=== PATIENT | female | born 1975 | race Caucasian/White ===

== ENCOUNTER 2024-09-26 09:58 | Inpatient (IN) | payer OTHER, SELFPAY ==
[2024-09-26] VITALS (12 sets, daily range): BP systolic 114–149; BP diastolic 61–80; PULSE 78–129; RESP 13–115; TEMP 36.6–37.2; O2SAT 95–99; BMI 22.5
--- NOTE | ~2024-09-26 | CT_ITS ---
EXAMINATION: CT CHEST WITHOUT IV CONTRAST INDICATION: abnormal CXR, cough, fevers COMPARISON: There are no prior studies available for comparison. TECHNIQUE: Helical CT scan of the chest was performed without intravenous contrast. Coronal and sagittal reformatted images were generated and reviewed. This CT exam was performed with one or more of the following dose reduction techniques: automated exposure control, adjustment of the mA and/or kV according to patient size, use of iterative reconstruction technique. DLP: 201 mGy-cm CHEST: THYROID: The thyroid is unremarkable. LUNGS: In the left lower lobe, there is a pleural-based area of consolidation with surrounding area of mild groundglass opacity and a further surrounding halo of consolidation. This area measures approximately 5.1 x 6.0 x 3.7 cm in size. The remainder of the lungs are clear. There is elevation of the left hemidiaphragm. MEDIASTINUM: There is a 9 mm superior mediastinal lymph node. GEORGE: Evaluation of the hilar regions is limited by lack of intravenous contrast material. CARDIOVASCULATURE: The heart is normal in size. There is no pericardial effusion. The thoracic aorta is normal in caliber. DEGREE OF CORONARY CALCIFICATION: none PLEURA: There is no pleural effusion. No pneumothorax. MAIN AIRWAYS: The mainstem bronchi and proximal branches are patent. AXILLA: There is no axillary lymphadenopathy. BONES AND SOFT TISSUES: There are rounded masses in both breasts measuring 1.5 x 1.1 cm on the right and 1.5 x 1.3 cm on the left. The bones are intact. UPPER ABDOMEN: The visualized portions of the liver, spleen, and adrenals have an unremarkable unenhanced appearance. CT/CT chest wo IV con IMPRESSION: 1. Pleural-based consolidation with surrounding groundglass and an additional halo of consolidation in the left lower lobe measuring 5.1 x 6.0 x 3.7 cm in aggregate. The appearance is not typical for bacterial pneumonia. Differential diagnostic considerations include cryptogenic organizing pneumonia, fungal or other infectious etiology, granulomatosis with polyangiitis sarcoidosis, and neoplasm. Clinical correlation is recommended. Tissue sampling may be necessary. 2. Bilateral breast nodules as described for which mammography and ultrasound are recommended. Electronically signed by: Justin Sylvester MD 09/26/2024 12:43 PM EDT RP
--- NOTE | 2024-09-26 10:38 | ED.URI ---
HPI - URI/Sore Throat General Chief Complaint: Upper Respiratory Symptoms Stated Complaint: abnormal chest xray Time Seen by Provider: 09/26/24 14:35 Source: patient Mode of arrival: ambulatory Limitations: no limitations History of Present Illness ED Provider: Dr. Todd Villa HPI Narrative: 49-year-old female with a history of anxiety, migraines, environmental allergies who presents emergency department for evaluation of sore throat, cough and fatigue x3 days. The patient has had a sore throat for proximally 3-4 days with laryngitis/loss of voice. She states that the throat pain is severe and she is unable to swallow food but he is able to drink liquids. Patient complains of a nonstop persistent, nonproductive cough which became productive today. She has not looked at the sputum. She states that she is having severe fatigue. She denied fever, chills, chest pain, shortness of breath, dyspnea on exertion, myalgias arthralgias. Patient went to an urgent care clinic and had an unusual chest x-ray therefore she was referred to the emergency department for evaluation. The patient states that she is not a smoker in his never smoked in the past. The patient states she does have nodular breasts and had a recent mammogram with ultrasound done through [facility] [address]. Vital signs revealed elevated heart rate, throat exam did reveal posterior erythema but no other significant findings, exam otherwise unremarkable except for very persistent, frequent, dry sounding cough. Related Data Allergies Allergy/AdvReac Type Severity Reaction Status Date / Time No Known Allergies Allergy Verified 09/26/24 10:41 Review of Systems Review of Systems: Yes all other systems are reviewed and are negative [facility] Past Medical History [facility] Narrative: Social history: The patient denies tobacco use in his never smoked cigarettes in the past. She states she drinks alcohol once a week and drinks 1-2 glasses of wine. She denies drug use. Social History Social History Smoked in Last 30 Days: No Use of substances other than those prescribed or required for medical reasons: No Advance Directives: No Advance Directives Information Provided: Yes Do you have a plan to hurt others: No Plan Patient : No Physical Exam Vital Signs: Vital Signs: Last Vital Signs Temp 98.5 F 09/26/24 16:12 Pulse 110 H 09/26/24 16:12 Resp 13 09/26/24 16:12 BP 140/61 H 09/26/24 16:12 Pulse Ox 99 09/26/24 16:15 O2 Del Method Room Air 09/26/24 16:15 BMI result Body Mass Index 22.5 Vital signs revealed an elevated heart rate of 129 otherwise unremarkable. Exam: General: Awake, alert, in no distress, , while I was in the room the patient had a very frequent dry sounding cough Head: Normocephalic, atraumatic EENT: PERRL, Lids normal, sclera normal, conjunctiva normal, nose normal , ears normal, throat : Posterior erythema with no exudates, uvula midline Neck: Supple, no adenopathy Lung: breath sounds symmetric, no wheezing, rales or rhonchi Chest: symmetric movement, nontender Heart: regular rate and rhythm, normal S1, S2 no murmurs or rubs Abdomen: soft, non-tender, nondistended, normal bowel sounds Back: no vertebral tenderness, no CVAT Extremities: no deformities, moves all extremities symmetrically Neuro: Awake, alert, oriented, normal speech, cranial nerves intact, moves all extremities symmetrically Psych: Pleasant, cooperative Course Course Course Narrative: 49 yo female with no PMH here with c/o cough for a few days, EKG - she has been sick over the weekend. No recent travel, sick contacts. She had neg strep, neg COVID at urgent care - sent by provider for ?spot on L lung. She has no chest pain, has sore throat. Stopped taking OTC medications but it is not working. At this time will obtain viral panel, strep, CT chest. this is a RAPID medical screening exam the rest of the history and physical exam is to be done by the main provider. DEMAR 09/26/24 1040am Medications Administered Generic Name Dose Route Start Last Admin Trade Name Freq PRN Reason Stop Dose Admin Azithromycin 500 mg/ Sodium 250 mls @ 125 mls/hr 09/26/24 15:14 09/26/24 16:10 Chloride IV 09/26/24 17:13 125 mls/hr ONCE ONE Administration Discontinued Medications Generic Name Dose Route Start Last Admin Trade Name Freq PRN Reason Stop Dose Admin Benzonatate 200 mg 09/26/24 15:14 09/26/24 15:54 Benzonatate 100 Mg Capsule PO 09/26/24 15:15 200 mg ONCE ONE Administration Ceftriaxone Sodium 1 gm 09/26/24 15:14 09/26/24 15:45 Ceftriaxone Sodium 1 Gm Vial IVPUSH 09/26/24 15:15 1 gm ONCE ONE Administration Sodium Chloride 1,000 mls @ 999 mls/hr 09/26/24 15:14 09/26/24 15:54 Ns IV 09/26/24 16:14 999 mls/hr .Q1H1M STA Administration Medical Decision Making Medical Decision Making [facility] Narrative: 49-year-old female with a history of anxiety, migraines, environmental allergies who presents emergency department for evaluation of sore throat, cough and fatigue x3 days. The patient has had a sore throat for proximally 3-4 days with laryngitis/loss of voice. She states that the throat pain is severe and she is unable to swallow food but he is able to drink liquids. Patient complains of a nonstop persistent, nonproductive cough which became productive today. She has not looked at the sputum. She states that she is having severe fatigue. She denied fever, chills, chest pain, shortness of breath, dyspnea on exertion, myalgias arthralgias. Patient went to an urgent care clinic and had an unusual chest x-ray therefore she was referred to the emergency department for evaluation. The patient states that she is not a smoker in his never smoked in the past. The patient states she does have nodular breasts and had a recent mammogram with ultrasound done through [facility]. 15:35 Differential diagnosis: ?Includes but is not limited to viral syndrome, COVID-19, influenza, RSV, viral pharyngitis, bacterial pharyngitis, pneumonia, bronchitis, neoplasm Course: 15:35 My independent interpretation patient's laboratory evaluation is as follows: WBC elevated 14,100. Chloride low 95. LFTs normal. Troponin detectable but not elevated at 7.9. COVID-19, influenza and RSV tests were negative. Rapid strep was negative. ESR was elevated 6.95. CT scan of the chest with IV contrast Pleural-based consolidation with surrounding groundglass and an additional halo of consolidation in the left lower lobe which the radiologist felt was atypical for bacterial pneumonia. The radiologist's differential diagnostic considerations include cryptogenic organizing pneumonia, fungal or other infectious etiology, granulomatosis with polyangiitis sarcoidosis, and neoplasm. Although this finding is very unusual, the patient's symptoms seemed to be consistent with an atypical pneumonia with a very frequent, persistent, dry cough. I did order blood cultures, lactic acid, ESR, VBG and procalcitonin. Patient will be treated with ceftriaxone 1 g IV and azithromycin 500 mg IV. I also ordered 1 L of normal saline IV. Patient's low potassium will be treated with potassium chloride 10 mEq IV x2 since she is having difficulty swallowing. Nano's given Toradol 15 mg IV for her throat pain. I also ordered Tessalon 200 mg orally for her cough. I will discuss admission with the covering hospitalist. The patient had an incidental finding: ?Bilateral breast nodules as described for which mammography and ultrasound are recommended ?. I did discuss this with the patient, the patient has known fibrous breasts and had a recent mammogram with ultrasound. I did give her a copy of the reading and asked her to discuss this with her PCP once she is discharged 14:16 I did discuss the patient's presentation with the covering hospitalist, Dr. Junior Ramirez and the patient will be admitted to the hospitalist service for further treatment. Admission/Observation Consideration of admission/observation: Escalation of care including admission/observation considered (Yes) Consult Healthcare Provider Management of the patient was discussed with: Hospitalist Lab Data MDM Lab Attestation statement: I reviewed the patient's lab results. 09/26/24 13:56 09/26/24 13:56 Labs: Lab Results 09/26/24 09/26/24 09/26/24 Range/Units 10:45 13:56 13:57 WBC 14.1 H (4.8-10.8) X10*3/uL RBC 4.64 (4.20-5.50) X10*6/uL Hgb 13.7 (12.0-16.0) g/dl Hct 40.6 (37.0-47.0) % MCV 87.5 (80.0-98.0) fL MCH 29.5 (27.0-33.0) pg MCHC 33.7 (31.0-35.0) g/dl RDW 12.3 (11.0-16.0) % Plt Count 340 (160-400) X10*3/uL MPV 9.0 L (9.4-12.3) fL Immature Gran % (Auto) 0.4 (0.0-0.4) % Neut % (Auto) 87.2 H (45-73) % Lymph % (Auto) 6.0 L (20-40) % [place] % (Auto) 5.4 (2-11) % Eos % (Auto) 0.6 (0-4) % Baso % (Auto) 0.4 (0-2) % Lymph # (Auto) 0.9 L (1.2-4.9) X10*3/uL [place] # (Auto) 0.8 (0.1-1.2) X10*3/uL Eos # (Auto) 0.1 (0.0-0.4) X10*3/uL Baso # (Auto) 0.1 (0.0-0.2) X10*3/uL Abs Immat Gran (auto) 0.05 H (0.00-0.03) X10*3/uL Absolute Neuts (auto) 12.3 H (2.0-8.3) x10*3/uL Absolute Nucleated RBC 0.000 (0.0-0.012) X10*3/uL Nucleated RBC % (auto) 0.0 (0.0-0.2) /100WBC Sodium 136 (135-145) mmol/L Potassium 3.0 L (3.3-5.1) mmol/L Chloride 95 L (96-108) mmol/L Carbon Dioxide 29 (22-29) mmol/L Anion Gap 15 (12-20) BUN 7 L (9-16) mg/dL Creatinine 0.74 (0.5-1.4) mg/dL Estim Creat Clear Calc 71.1 Estimated GFR > 60 Random Glucose 113 (60-115) mg/dL Calcium 9.4 (8.4-10.2) mg/dL Magnesium 2.1 (1.6-2.6) mg/dL Total Bilirubin 0.6 (0.0-1.0) mg/dL Direct Bilirubin 0.2 (0.0-0.5) mg/dL AST 27 (5-31) U/L ALT 16 (0-31) U/L Alkaline Phosphatase 84 (39-117) U/L Troponin I High Sens 14.9 (<3.5-17.0) ng/L C-Reactive Protein 6.95 H (< or = 0.50) mg/dL B-Natriuretic Peptide 16 (<100) pg/mL Total Protein 7.9 (6.5-8.0) g/dL Albumin 4.5 (3.5-5.0) g/dL Influenza Type A (PCR) NEGATIVE (Negative) Influenza Type B (PCR) NEGATIVE (Negative) RSV RNA Qual (PCR) NEGATIVE (Negative) SARS-CoV-2 RNA (RT-PCR) NEGATIVE (Negative) S. pyogenes GrpA DOMINGUEZ Negative (Negative) Independent Interpretation I performed an independent interpretation of an: EKG Interpretation: My independent interpretation patient's 12 lead EKG done on 09/26/2024 at 13:46 hours is as follows: Sinus tachycardia with a rate of 118, normal MS interval, QRS duration and QTC interval, no ST segment elevation, no ST segment depression, no significant T-wave abnormalities, no PACs, no PVCs, no previous EKG for comparison Radiology Impression Discussion of test interpretation with radiology: I have reviewed the radiologist's reading. Radiologist Impression: EXAMINATION: CT CHEST WITHOUT IV CONTRAST INDICATION: abnormal CXR, cough, fevers COMPARISON: There are no prior studies available for comparison. TECHNIQUE: Helical CT scan of the chest was performed without intravenous contrast. Coronal and sagittal reformatted images were generated and reviewed. This CT exam was performed with one or more of the following dose reduction techniques: automated exposure control, adjustment of the mA and/or kV according to patient size, use of iterative reconstruction technique. DLP: 201 mGy-cm CHEST: THYROID: The thyroid is unremarkable. LUNGS: In the left lower lobe, there is a pleural-based area of consolidation with surrounding area of mild groundglass opacity and a further surrounding halo of consolidation. This area measures approximately 5.1 x 6.0 x 3.7 cm in size. The remainder of the lungs are clear. There is elevation of the left hemidiaphragm. MEDIASTINUM: There is a 9 mm superior mediastinal lymph node. GEORGE: Evaluation of the hilar regions is limited by lack of intravenous contrast material. CARDIOVASCULATURE: The heart is normal in size. There is no pericardial effusion. The thoracic aorta is normal in caliber. DEGREE OF CORONARY CALCIFICATION: none PLEURA: There is no pleural effusion. No pneumothorax. MAIN AIRWAYS: The mainstem bronchi and proximal branches are patent. AXILLA: There is no axillary lymphadenopathy. BONES AND SOFT TISSUES: There are rounded masses in both breasts measuring 1.5 x 1.1 cm on the right and 1.5 x 1.3 cm on the left. The bones are intact. UPPER ABDOMEN: The visualized portions of the liver, spleen, and adrenals have an unremarkable unenhanced appearance. CT/CT chest wo IV con IMPRESSION: 1. Pleural-based consolidation with surrounding groundglass and an additional halo of consolidation in the left lower lobe measuring 5.1 x 6.0 x 3.7 cm in aggregate. The appearance is not typical for bacterial pneumonia. Differential diagnostic considerations include cryptogenic organizing pneumonia, fungal or other infectious etiology, granulomatosis with polyangiitis sarcoidosis, and neoplasm. Clinical correlation is recommended. Tissue sampling may be necessary. 2. Bilateral breast nodules as described for which mammography and ultrasound are recommended. Electronically signed by: Justin Sylvester MD 09/26/2024 12:43 PM Critical Care Time Critical Care Time Critical Care Time: Yes Total Critical Care Time: 35 Attestation: Critical Care: The patient was critically ill with a high probability of imminent or life threatening deterioration. I spent greater than 30 minutes of discontinuous time evaluating the patient,delivering critical care at the bedside, discussing and evaluating pertinent data with consultants. Critical care time does not include time spent performing separately billable procedures or teaching. Total time spent performing critical care was 35 minutes. Discharge Plan Discharge Clinical Impression: Atypical pneumonia, Acute hypokalemia, Breast nodule Patient Disposition: Admitted As Inpatient Print Language: Sami
[2024-09-26 11:06] LABS: IDNOW Serial# 55D5AD1C; Strep A Nucleic Acid Negative (Negative)
[2024-09-26 11:29] LABS: Influenza A PCR NEGATIVE (Negative); Influenza B PCR NEGATIVE (Negative); Resp Syncy Virus RNA Qual PCR NEGATIVE (Negative); SARS COV2 PCR INHOUSE NEGATIVE (Negative)
--- NOTE | 2024-09-26 13:43 | ECG_ITS ---
Test Reason : tachycardia Blood Pressure : */* mmHG Vent. Rate : 118 BPM Atrial Rate : 118 BPM P-R Int : 144 ms QRS Dur : 76 ms QT Int : 332 ms P-R-T Axes : 72 63 57 degrees QTcB Int : 465 ms Sinus tachycardia Possible Left atrial enlargement Borderline ECG No previous ECGs available Referred By: Kimberley Starr Electronically Signed By: RANDA GALARZA MD
[2024-09-26 14:00] LABS: MANUAL DIFF FLAG NO
[2024-09-26 14:15] LABS: Basophils Absolute Auto 0.1 X10*3/uL (0.0-0.2); Basophils Percent Auto 0.4 % (0-2); Eosinophils Absolute Auto 0.1 X10*3/uL (0.0-0.4); Eosinophils Percent Auto 0.6 % (0-4); Hematocrit 40.6 % (37.0-47.0); Hemoglobin 13.7 g/dl (12.0-16.0); Imm Gran Abs Auto 0.05 X10*3/uL (0.00-0.03); Imm Gran Pct Auto 0.4 % (0.0-0.4); Lymphocytes Absolute Auto 0.9 X10*3/uL (1.2-4.9); Mean Corpuscular HGB Conc 33.7 g/dl (31.0-35.0); Mean Corpuscular Hemoglobin 29.5 pg (27.0-33.0); Mean Corpuscular Volume 87.5 fL (80.0-98.0); Monocytes Absolute Auto 0.8 X10*3/uL (0.1-1.2); Monocytes Percent Auto 5.4 % (2-11); Neutrophils Absolute Auto 12.3 x10*3/uL (2.0-8.3); Neutrophils Percent Auto 87.2 % (45-73); Platelet Count 340 X10*3/uL (160-400); Red Blood Count 4.64 X10*6/uL (4.20-5.50); Red Cell Distribution Width 12.3 % (11.0-16.0); White Blood Count 14.1 X10*3/uL (4.8-10.8)
[2024-09-26 14:21] LABS: Alanine Aminotransferase 16 U/L (0-31); Albumin Level 4.5 g/dL (3.5-5.0); Alkaline Phosphatase 84 U/L (39-117); Anion Gap 15 (12-20); Aspartate Amino Transferase 27 U/L (5-31); Bilirubin Direct 0.2 mg/dL (0.0-0.5); Bilirubin Total 0.6 mg/dL (0.0-1.0); Blood Urea Nitrogen 7 mg/dL (9-16); C Reactive Protein 6.95 mg/dL (< or = 0.50); Calcium 9.4 mg/dL (8.4-10.2); Carbon Dioxide 29 mmol/L (22-29); Chloride 95 mmol/L (96-108); Creatinine Clr Calc Pharmacy 71.1; Estimated Glomerular Filt Rate > 60; Glucose Random 113 mg/dL (60-115); Magnesium 2.1 mg/dL (1.6-2.6); Sodium 136 mmol/L (135-145); Total Protein 7.9 g/dL (6.5-8.0)
[2024-09-26 14:27] LABS: B Type Natriuretic Peptide 16 pg/mL (<100)
[2024-09-26 14:28] LABS: Troponin-I High Sensitivity 14.9 ng/L (<3.5-17.0)
--- NOTE | 2024-09-26 15:25 | PC.NURSE ---
PT difficult to obtain IV access this nurse placed 20G IV in patient Right AC.
[2024-09-26] MEDS: cefTRIAXone sodium 1 GM VIAL IVPUSH (15:45)
--- NOTE | 2024-09-26 15:49 | PC.NURSE ---
Delay in Abx administration due to difficulty obtaining access.
[2024-09-26] MEDS: 0.9 % Sodium Chloride 1,000 ML 999 ML IV (15:54)
[2024-09-26] MEDS: Benzonatate 100 MG CAPSULE 200 MG PO (15:54)
[2024-09-26] MEDS: Azithromycin 500 MG in 0.9 % Sodium Chloride 250 ML 125 MG IV (16:10)
[2024-09-26 16:20] LABS: VBG Base Excess 6.9 mmol/L; VBG HCO3 31 mmol/L (22-26); VBG pCO2 43 mmHg; VBG pH 7.46 (7.32-7.43); VBG pO2 45 mmHg
--- NOTE | 2024-09-26 16:27 | PC.NURSE ---
This nurse places second IV access placed in Left AC 20G.
[2024-09-26] MEDS: Potassium Chloride/H20 10 MEQ/100 ML PIGGYBACK 100 MEQ IV ×2 (16:33→18:51)
[2024-09-26] MEDS: Ketorolac Tromethamine 15 MG/ML VIAL IVPUSH (16:33)
[2024-09-26 16:34] LABS: Venous Blood Gas Refer to POC result
[2024-09-26 16:38] LABS: Lactic Acid 2.1 mmol/L (0.5-2.0)
--- NOTE | 2024-09-26 16:50 | PHA.MEDREC ---
Pharmacy Consult ? Medication Reconciliation Pharmacy has completed the medication reconciliation. Spoke with patient who confirmed she only takes 1 tablet of the amitriptyline at bedtime instead of the prescribed 2 tablets. Patient also stated she takes [facility] sleep aid she could not confirm the active ingredient, [facility] has two types of sleep aid, there is one with doxylamine and one with diphehydramine, Patient was not sure which she is on.
[2024-09-26 16:58] LABS: Procalcitonin 0.03 ng/mL
[2024-09-26] MEDS: 0.9 % Sodium Chloride 1,677 ML 1677 ML IV (17:05)
--- OUTSIDE RECORDS SUMMARY | 2024-09-26 17:06 | XMS_ITS | Clinical Summary ---
Author Organization [facility] [address] [place] [address] Address [address] [place] [address] Phone Care Team Providers Care Healthcare Associate Name Role Phone Katherine Webereleazarsanthosh AERIAL PHOTOGRAMMETRIST Primary Care Provider [phone] Allergies Active Allergy Reactions Criticality Noted Date Comments Cat Dander 02/25/2011 Horse Dander 02/25/2011 House Dust 02/25/2011 Medications amitriptyline (ELAVIL) 10 mg tablet Take 1 tablet (10 mg total) by mouth at bedtime. Active doxylamine (UNISOM) 25 mg tablet Take by mouth. Active escitalopram (LEXAPRO) 10 mg tablet Take 1 tablet (10 mg total) by mouth 1 (one) time each day. Active fluticasone propionate (FLONASE) 50 mcg/actuation nasal spray by route. Active estradiol-noret hindrone (ACTIVELLA) 1-0.5 mg per tablet Take 1 tablet by mouth 1 (one) time each day. 90 each 1 5 09/12/19 26 Active estradiol-noret hindrone (ACTIVELLA) 1-0.5 mg per tablet Take 1 tablet by mouth 1 (one) time each day. 90 each 5 09/12/19 25 Discontinu ed(Reorder ) Active Problems Problem Noted Date Diagnosed Date Allergic rhinitis 06/20/2024 Anxiety 06/20/2024 Immunizations Name Administration Dates Next Due Influenza Quadravalent, MDCK , 0.5ml, preservative free (Flucelvax) 6mo and older 12/28/2018 Influenza trivalent, 0.5mL, preservative free (Fluarix; FluLaval; Fluzone) ages 6mo and older (Afluria) 3 years and older 01/05/2011 Surgical History Surgery Date Site/Laterality Comments OTHER SURGICAL HISTORY 02/2004 PROCEDURE: AL DILATION & CURETTAGE DX&/THER NONOBSTETRIC TONSILLECTOMY 1997 PROCEDURE: HISTORICAL TONSILLECTOMY BUNIONECTOMY 01/02/2018 Right PROCEDURE: BUNION SURGERY, SIMPLE REMOVAL Medical History Medical History Date Comments Tumors of body of uterus, an tepartum condition or complication DX:Tumors of body of uterus, antepartum condition or complication; COMMENT: Posterior uterine fibroid. Papanicolaou smear of cervix with atypical squamous cells of undetermined significance (ASC-US) DX:Papanicolaou sme ar of cervix with atypical squamous cells of undetermined significance (ASC-US) Anemia, unspecified DX:Anemia, u nspecified Other specified personal his tory presenting hazards to health(V15.89) DX:Other specifie d personal history presenting hazards to health(V15.89) Anxiety 06/20/2024 Family History Medical History Relation Name Comments Lung cancer Father Other cancer Father Brain Diabetes Maternal Grandmother Breast cancer Neg Hx Relation Name Status Comments Father Alive Maternal Grandfather Maternal Grandmother Mother Alive Paternal Grandfather Alive Paternal Grandmother Sister Alive Son Jair Alive Social History Tobacco Use Types Packs/Day Years Used Date Smoking Tobacco: Never Smokeless Tobacco: Never Alcohol Use Standard Drinks/Week Comments Yes 0 (1 standard drink = 0.6 oz pur e alcohol) occ Housing Instability Answer Date Recorde d Are you worried that in the next 2 months you may not have stable housing? No 06/19/2024 Food Access & Nutrition Answer Date Rec orded Do you have access to a vari ety of food including fruits and vegetables? Yes 06/19/2024 Access to Healthcare Answer Date Record ed Within the last 3 months, moira w many times did you visit the emergency department for your medical care? 0 06/19/2024 Health Literacy Answer Date Recorded How often do you need to hav e someone help you when you read instructions, pamphlets, or other written material from your doctor or pharmacy? Never 06/19/2024 Caregiver: How often do you need to have someone help you when you read instructions, pamphlets, or other written material from your doctor or pharmacy? Not on file 06/19/2024 Financial Risk Answer Date Recorded How hard is it for you to pa y for the very basics like food, housing, medical care, and air conditioning / heating? Not very hard 06/19/2024 Transportation Answer Date Recorded Has the lack of transportati on kept you from meetings, work, or from getting things needed for daily living? No Has the lack of transportati on kept you from medical appointments or from getting medications? No 06/19/2024 Social Isolation Answer Date Recorded How often do you feel lonely or isolated from th ose around you? Never 06/19/2024 Food Risk Answer Date Recorded Within the past 12 months we worried whether our food would run out before we got money to buy more. Never true 06/19/2024 Within the past 12 months th e food we bought just didn't last and we didn't have money to get more. Never true 06/19/2024 Dependent Care Answer Date Recorded Do you need help finding or paying for care for your loved ones. For example, attendant child activity or elderly care for an older adult? No 06/19/2024 Education Answer Date Recorded Do you think completing more education or training, like finishing a GED, going to college, or learning a trade, would be helpful for you? No 06/19/2024 Employment and Income Answer Date Recor ded During the last four weeks, have you been actively looking for work? No 06/19/2024 Living Situation Answer Date Recorded What is your living situation? 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 Not on file Not on file Not on file Obstetrics History Para Term AB IAB SAB Ectopic Multiple Livin g Live Births 2 1 1 0 1 0 1 0 0 1 1 Date Outcome GA Total Labor Labor/2nd/3rd Weight Sex Type Anes PTL Jacqui A1 A5 Name Clin 2003 SAB SAB Decea sed 2005 Term 40w 0d 2580 g (91 oz) M Vag-S nuhat Man davila Delivery Location:[facility] Last Filed Vital Signs Vital Sign Reading Time Taken Comments Blood Pressure 100/70 06/20/2024 3:11 PM EST Pulse - - Temperature - - Respiratory Rate - - Oxygen Saturation - - Inhaled Oxygen Concentration - - Weight 59 kg (130 lb) 06/20/2024 3:11 PM EST Height 157.5 cm (5' 2 ) 06/20/2024 3:11 PM EST Body Mass Index 23.78 06/20/2024 3:11 PM EST Plan of Treatment Health Maintenance Due Date Last Done Comments Hepatitis B Vaccines (1 of 3 - 19+ 3-dose series) 02/10/1992 Colorectal Cancer Screening: Colonoscopy 03/27/2022 Pneumococcal Vaccine: 50+ Years (2 of 2 - PCV) 2023 07/13/2000 Zoster Vaccines (1 of 2) 2023 COVID-19 Vaccine ( - season) 2023 03/21/2021, 08/31/2020, 08/09/2020 Influenza Vaccine (Season Ended) 2024 01/25/2021, 01/10/2020, 01/10/2020, Additional history exists Depression Screening 06/19/2025 06/19/2024 Social Influencers of Health Screening 06/19/2025 06/19/2024 Breast Cancer Screening 03/30/2026 03/30/20, 03/13/2024, 01/26/2023, Additional history exists Cervical Cancer Screening: HPV 05/13/2027 05/13/2022 Cervical Cancer Screening: Pap Smear 05/13/2027 05/13/2022, 05/13/2022, 05/13/2022, Additional history exists DTaP,Tdap,and Td Vaccines (3 - Td or Tdap) 07/29/2031 07/28/2021, 06/04/2010 Pneumococcal Vaccine: Pediatrics (0 to 5 Years) and At-Risk Patients (6 to 64 Years) Aged Out 07/13/2000 No longer eligible based on patient's age to complete this topic HIV Screening Completed 10/03/2013 Hepatitis C Screening Completed 10/03/2013 HIB Vaccines Aged Out No longer eligi ble based on patient's age to complete this topic HPV Vaccines Aged Out No longer eligi ble based on patient's age to complete this topic Hepatitis A Vaccines Aged Out No long er eligible based on patient's age to complete this topic IPV Vaccines Aged Out No longer eligi ble based on patient's age to complete this topic MMR Vaccines Aged Out No longer eligi ble based on patient's age to complete this topic Meningococcal ACWY Vaccine Aged Out N o longer eligible based on patient's age to complete this topic Meningococcal B Vaccine Aged Out No l onger eligible based on patient's age to complete this topic RSV Immunization Patients Under 20 months Aged Out No longer eligible based on patient's age to complete this topic Varicella Vaccines Aged Out No longer eligible based on patient's age to complete this topic Procedures Procedure Name Priority Date/Time Associated Diagnosis Comments MG MAMMO DIGITAL DIAGNOSTIC W YOBANI RIGHT Routine 03/30/2024 9:58 AM EST Abnormal mammogram HPV Routine 05/13/2022 PAP SMEAR Routine 05/13/2022 HEPATITIS C SCREENING Routine 10/03/2013 HIV SCREENING Routine 10/03/2013 from Last 3 Months or Most Recently Relevant to Health Maintenance Results * MG Mammo Digital Diagnostic w Yobani Right (03/30/2024 9:58 AM EST) Anatomical Region Laterality Modality Breast Right Mammography 03/30/2024 11:0 9 AM EST Impressions 03/30/2024 12:03 PM EST 1. Mammographic finding corresponds to typically benign cyst. ?? 2. Heterogeneously dense BI-RADS CATEGORY: 2 - BENIGN RECOMMENDATION: Return to annual mammography. -------- FINAL REPORT -------- Dictated By: Salvador Cox Dictated Date: 03/30/2024 11:09 ET Assigned Physician: Salvador Cox Reviewed and Electronically Signed By: Salvador Cox Signed Date: 03/30/2024 12:03 ET Workstation ID: [id number] Transcribed By: Self Edit Transcribed Date: 03/30/2024 11:23 ET Narrative 03/30/2024 12:03 PM EST RIGHT DIGITAL 3D DIAGNOSTIC MAMMOGRAPHY HISTORY: Workup for upper outer focal asymmetry COMPARISON: Mammogram from 03/13/2024 Technique: Right breast CC and MLO spot compression, full-field ML 3-D FINDINGS: BREAST DENSITY: C - The breasts are heterogeneously dense which may obscure small masses. Right breast upper outer focal asymmetry persists on spot compression and is sonographically corresponds to typically benign cyst. EXAM PERFORMED: RIGHT BREAST TARGETED ULTRASOUND EVALUATION HISTORY: ??Workup for upper outer focal asymmetry TECHNIQUE: Ultrasonographic examination is performed using a linear array transducer. Targeted ultrasound was performed at 9:00 to 12:00 to evaluate mammographic finding. Real-time sonographic scanning was also performed by the radiologist FINDINGS: At 10:00, there is a 1.8 x 0.8 x 1.8 cm anechoic thin-walled typically benign cyst which corresponds to mammographic finding. Procedure Note Salvador Cox MD - 03/30/2024 RIGHT DIGITAL 3D DIAGNOSTIC MAMMOGRAPHY HISTORY: Workup for upper outer focal asymmetry COMPARISON: Mammogram from 03/13/2024 Technique: Right breast CC and MLO spot compression, full-field ML 3-D FINDINGS: BREAST DENSITY: C - The breasts are heterogeneously dense which mayobscure small masses. Right breast upper outer focal asymmetry persists on spot compression andis sonographically corresponds to typically benign cyst. EXAM PERFORMED: RIGHT BREAST TARGETED ULTRASOUND EVALUATION HISTORY: Workup for upper outer focal asymmetry TECHNIQUE: Ultrasonographic examination is performed using a linear arraytransducer. Targeted ultrasound was performed at 9:00 to 12:00 to evaluatemammographic finding. Real-time sonographic scanning was also performed bythe radiologist FINDINGS: At 10:00, there is a 1.8 x 0.8 x 1.8 cm anechoic thin-walled typicallybenign cyst which corresponds to mammographic finding. IMPRESSION: 1. Mammographic finding corresponds to typically benign cyst. 2. Heterogeneously dense BI-RADS CATEGORY: 2 - BENIGN RECOMMENDATION: Return to annual mammography. -------- FINAL REPORT -------- Dictated By: Salvador Cox Dictated Date: 03/30/2024 11:09 ET Assigned Physician: Salvador Cox Reviewed and Electronically Signed By: Salvador Cox Signed Date: 03/30/2024 12:03 ET Workstation ID: [id number] Transcribed By: Self Edit Transcribed Date: 03/30/2024 11:23 ET Sabrina Tidwell MD IMG BI PROCEDURES Final Result * Cervical Cancer Screening: HPV (05/13/2022) [facility] Cervical Cancer Screening: HPV negative, abstracted us Historical Provider MD HEALTH MAINTENANCE Final Result * Pap smear (05/13/2022) 05/13/2022 Narrative HISTORICAL TESTING LAB RESULTING AGENCY - 05/24/2022 7:31 AM EST [id number] THINPREP PAP, IMAGED: NEGATIVE FOR SQUAMOUS INTRAEPITHELIAL LESION AND MALIGNANCY . KATHERINE PARK , CT(ASCP) (CASE ELECTRONICALLY SIGNED 05 22 2022) RESULT OF APTIMA HIGH RISK HPV ASSAY: HIGH RISK HPV: ??NEGATIVE (SEROTYPES 16,18,31,33,35,39,45,51,52,56,58,59,66,68) COMPLETED ON 2022-05-14 ADEQUACY: SATISFACTORY ENDOCERVICAL/TRANSFORMATION ZONE COMPONENT PRESENT. SOURCE: THINPREP PAP HPV ANY DX: ??REFLEX 16 AND 18, CERVICAL, IMAGED CLINICAL INFORMATION: HPV ANY DIAGNOSIS. HORMONES, PAP HX NEG, HPV NEG, 11/24/17, [Z01.419] us Susan Flanagan DO LAB CYTOLOGY ORDERABLES Final Result HISTORICAL TESTING LAB RESULTING AGENCY * HIV Screening (10/03/2013) HIV Screening abstracted Historical Provider HEALTH MAINTENANCE Final Result * Hepatitis C Screening (10/03/2013) Hepatitis C Screening abstracted us Historical Provider HEALTH MAINTENANCE Final Result from Last 3 Months or Most Recently Relevant to Health Maintenance Insurance CLARIBEL FERRARO [id number] [employer] Care Teams Healthcare Associate Relationship Specialty Start Date End Date Katherine Weber NP [address] [place] [address] PCP - General Family Medicine 03/13/24
--- NOTE | 2024-09-26 17:12 | PC.NURSE ---
Provider ordered fluid bolus on pt based on weight for sepsis protocol, Provider wanted the bag of 1000 ML of 0.9% NS to be applied to fluid bolus and just give the pt 677 ml which is the differential of the total bolus . roller printer & Clinical Coordinator Orlin Webster aware.
[2024-09-26 17:13] LABS: Erythrocyte Sedimentation Rate 66 MM/HR (0-20)
--- NOTE | 2024-09-26 17:36 | PC.NURSE ---
PT potassium still running.
--- NOTE | 2024-09-26 18:01 | PC.NURSE ---
PT heart rate Tachy in the [facility]'s Hospitalist at bedside and aware Dr. Pacheco to put another a liter of LR & continue monitoring HR, pt not to be admitted to due to pt HR, pt to go to [facility].
[2024-09-26 18:16] LABS: Reflex Lactate? Lactic Acid Added
[2024-09-26] MEDS: Famotidine/PF 20 MG/2 ML VIAL IVPUSH (18:33)
--- NOTE | 2024-09-26 18:39 | PC.NURSE ---
IVF Bolus 0.9% NS Finished. BP taken.
[2024-09-26 18:42] LABS: Thyroid Stimulating Hormone 0.94 uIU/mL (0.32-4.0)
--- NOTE | 2024-09-26 18:46 | P.HPHOSP_ITS ---
History of Present Illness Date of Service: 09/26/24 Attending physician on admission: Jerry Ramirez Chief Complaint: Swallowing difficulty Kayla Chen is a 49 years old with no significant past medical history presents to the emergency department complaining of 3-day history of sore throat and difficulty swallowing due to pain. She also reports productive sputum (it was dry initially). Patient has been able to swallow will need to but has some difficulty with solids due to pain. She denied fever or chills. She also denied chest pain, shortness on breath, muscle aches or wheezing. Denied any acute gastrointestinal or genitourinary symptoms. See used to smoke tobacco in the past. Denied alcohol abuse or illicit drug use. Patient mentioned that she had a similar episode in the past that resolved after she received treatment with Pepcid. She denied recent contact with ill people or recent travel. In the ED, she was found to significant tachycardia at 123 bpm. Blood pressure, oxygen saturation temperature are unremarkable. Blood workup showed leukocytosis of 14.1. Hemoglobin and platelets are normal. Venous blood gas showed no respiratory acidosis. Potassium was 3.0 initially. Most recent potassium level is 3.8. There are no other significant electrolyte imbalances. Lactic acid was minimally elevated, 2.1 (repeat is normal). LFTs, troponin and BNP and normal. CRP is 6.95. TSH is 0.94 and procalcitonin 0.03. Chest CT scan without contrast showed pleural-based consolidation with surrounding ground-glass in the left lower lobe and bilateral breast nodules. ECG showed sinus tachycardia, heart rate 118 bpm without ischemic changes. ED tx: Ceftriaxone 1 g IV, azithromycin 500 mg IV, ketorolac 15 mg IV NS 2,677 ml bolus. Solu-Medrol 60 mg IV Review of Systems 2 Review of Systems: All 12 systems were reviewed and normal except as noted in HPI. PMFSH Social History Patient Tobacco Use Status: Never used Tobacco Smoked in Last 30 Days: No Use of substances other than those prescribed or required for medical reasons: No Advance Directives: No Advance Directives Information Provided: Yes Do you have a plan to hurt others: No Plan Nutrition Risks: No Nutritional Risk Patient : No Meds Allergies Allergy/AdvReac Type Severity Reaction Status Date / Time No Known Allergies Allergy Verified 09/26/24 10:41 Active Medications: Current Medications Acetaminophen (Acetaminophen 325 Mg Tablet) 650 mg PO Q6H PRN PRN Reason: Pain, Mild 1-3,fever,headache Benzocaine (Throat Lozenge, Medicated Lozenge) 1 lozenge MUCOUS MEM Q2H PRN PRN Reason: Sore Throat Calcium Carbonate (Calcium Carbonate 750 Mg Tab.Chew) 750 mg PO Q4H PRN PRN Reason: Heartburn Enoxaparin Sodium (Enoxaparin Sodium 40 Mg/0.4 Ml Syringe) 40 mg SUBCUT Q24H [facility] Famotidine (Famotidine/Pf 20 Mg/2 Ml Vial) 20 mg IVPUSH BID [facility] Last Admin: 09/26/24 18:33 Dose: 20 mg Guaifenesin/Dextromethorphan (Guaifenesin Dm 200/20/10 Ml 10 Ml Syrup) 10 ml PO Q4H PRN PRN Reason: Cough Lactated Ringer's (Lr) 1,000 mls @ 999 mls/hr IV .Q1H1M [facility] Stop: 09/26/24 19:00 Magnesium Hydroxide (Milk Of Magnesia 30 Ml Oral.Susp) 30 ml PO DAILY PRN PRN Reason: Constipation Melatonin (Melatonin 3 Mg Tablet) 6 mg PO BEDTIME PRN PRN Reason: Insomnia Sodium Chloride (0.9 % Sodium Chloride Flush 3 Ml Syringe) 3 ml IVFLUSH QSHIFT [facility] Home Medications ?Medication ?Instructions ?Recorded ?Confirmed ?Last Taken ?Type amitriptyline 10 mg tablet 10 mg PO BEDTIME 09/26/24 09/26/24 09/25/24 History escitalopram oxalate 10 mg tablet 10 mg PO DAILY 09/26/24 09/26/24 09/25/24 History estradiol-norethindrone acet 1 1 tab PO DAILY 09/26/24 09/26/24 09/25/24 History mg-0.5 mg tablet fluticasone propionate 50 2 spray intranasal QAM 09/26/24 09/26/24 09/25/24 History mcg/actuation nasal spray,suspension Physical Exam 2 Vital Signs and Narrative: Vital Signs: Last Vital Signs Temp 98.5 F 09/26/24 16:12 Pulse 115 H 09/26/24 18:40 Resp 17 09/26/24 17:50 BP 141/62 H 09/26/24 18:40 Pulse Ox 96 09/26/24 17:50 O2 Del Method Room Air 09/26/24 17:50 BMI result Body Mass Index 22.5 Constitutional - Awake and Alert, No apparent distress. Pleasant. Cooperative. HEENT - PER, EOMI. Oropharynx: Erythematous. No thrush. Heart - S1S2, RRR, No edema Lungs - Normal lung expansion, Normal respiratory effort, No respiratory distress, CTA bilaterally Abdomen- NT / ND; +BS; No rebound or guarding - No CVA tenderness Abdomen - nondistended, nontender, normal bowel sounds. Extremities - no calf tenderness bilaterally, no swelling Musculoskeletal - Normal inspection, normal ROM Skin - Warm/Dry Neurological - Alert & oriented x3. No focal weakness grossly noted. Normal speech. Psychological - Appropriate affect Results Labs 09/26/24 13:56 09/26/24 20:01 Labs: Laboratory Results - last 24 hr 09/26/24 09/26/24 09/26/24 10:45 13:56 13:57 MCV 87.5 MCH 29.5 MCHC 33.7 RDW 12.3 Plt Count 340 MPV 9.0 L Immature Gran % (Auto) 0.4 Neut % (Auto) 87.2 H Lymph % (Auto) 6.0 L [place] % (Auto) 5.4 Eos % (Auto) 0.6 Baso % (Auto) 0.4 Lymph # (Auto) 0.9 L [place] # (Auto) 0.8 Eos # (Auto) 0.1 Baso # (Auto) 0.1 Abs Immat Gran (auto) 0.05 H Absolute Neuts (auto) 12.3 H Absolute Nucleated RBC 0.000 Nucleated RBC % (auto) 0.0 ESR VBG pH VBG pCO2 VBG pO2 VBG HCO3 VBG O2 Saturation VBG Base Excess Anion Gap 15 Estim Creat Clear Calc 71.1 Estimated GFR > 60 Random Glucose 113 Lactic Acid Calcium 9.4 Magnesium 2.1 Total Bilirubin 0.6 Direct Bilirubin 0.2 AST 27 ALT 16 Alkaline Phosphatase 84 Troponin I High Sens 14.9 C-Reactive Protein 6.95 H B-Natriuretic Peptide 16 Total Protein 7.9 Albumin 4.5 Procalcitonin TSH 0.94 Influenza Type A (PCR) NEGATIVE Influenza Type B (PCR) NEGATIVE RSV RNA Qual (PCR) NEGATIVE SARS-CoV-2 RNA (RT-PCR) NEGATIVE S. pyogenes GrpA DOMINGUEZ Negative 09/26/24 09/26/24 16:10 16:16 MCV MCH MCHC RDW Plt Count MPV Immature Gran % (Auto) Neut % (Auto) Lymph % (Auto) [place] % (Auto) Eos % (Auto) Baso % (Auto) Lymph # (Auto) [place] # (Auto) Eos # (Auto) Baso # (Auto) Abs Immat Gran (auto) Absolute Neuts (auto) Absolute Nucleated RBC Nucleated RBC % (auto) ESR 66 H VBG pH 7.46 H VBG pCO2 43 VBG pO2 45 VBG HCO3 31 H VBG O2 Saturation 64.0 VBG Base Excess 6.9 Anion Gap Estim Creat Clear Calc Estimated GFR Random Glucose Lactic Acid 2.1 H* Calcium Magnesium Total Bilirubin Direct Bilirubin AST ALT Alkaline Phosphatase Troponin I High Sens C-Reactive Protein B-Natriuretic Peptide Total Protein Albumin Procalcitonin 0.03 TSH Influenza Type A (PCR) Influenza Type B (PCR) RSV RNA Qual (PCR) SARS-CoV-2 RNA (RT-PCR) S. pyogenes GrpA DOMINGUEZ Imaging Radiologist's Impressions: Impressions Chest CT 09/26/24 10:39 IMPRESSION: 1. Pleural-based consolidation with surrounding groundglass and an additional halo of consolidation in the left lower lobe measuring 5.1 x 6.0 x 3.7 cm in aggregate. The appearance is not typical for bacterial pneumonia. Differential diagnostic considerations include cryptogenic organizing pneumonia, fungal or other infectious etiology, granulomatosis with polyangiitis sarcoidosis, and neoplasm. Clinical correlation is recommended. Tissue sampling may be necessary. 2. Bilateral breast nodules as described for which mammography and ultrasound are recommended. Electronically signed by: Justin Sylvester MD 09/26/2024 12:43 PM EDT Assessment and Plan (1) Pneumonia: Qualifiers: Pneumonia type: due to unspecified organism Laterality: left Lung location: lower lobe of lung Qualified Code(s): J18.9 - Pneumonia, unspecified organism Status: Acute (2) Acute hypokalemia: Status: Acute Plan Kayla Chen is a 49 y/o woman with: * Pneumonia etiology: viral vs fungal infection, possible superimposed bacterial pneumonia; DDx: cryptogenic organizing pneumonia, granulomatosis with polyangiitis, sarcoidosis and neoplasm. Admit to hospitalist service. Telemetry. Pulse oximetry. Supplemental O2 to keep O2 sats > 90%. Continue empiric IV antibiotic therapy. Start IV steroids. Check ANCA, RF, ELISEO, KOLBY, HIV, sputum culture for fungal infection. Pulmonology and ID consult. * Sinus tachycardia and leukocytosis, likely secondary to above. No significant lactic acidosis. No hypotension or fever. No severe sepsis. Receive around 3.5 L of normal saline/LR. Blood culture obtained -will follow results. * Bilateral breast nodules. Patient is awake and following as an outpatient. DVT prophylaxis: Code status: Full Patient will need hospitalization for at least 2 midnights for pneumonia treatment/management with IV antibiotics, IV steroids and close monitoring of vital signs; she will also need evaluation by subspecialties. Quality Stroke Does the patient have a stroke diagnosis?: No VTE Prior VTE?: No VTE Risk Level:: Medical - moderate - high VTE Device Contraindication: Treatment Not Indicated VTE Drug Contraindication: N/A - Med Ordered
[2024-09-26 18:50] LABS: ~Lactic Acid-LAB USE ONLY 1.2 mmol/L (0.5-2.0)
[2024-09-26] MEDS: Lactated Ringers 1,000 ML 999 ML IV (18:52)
[2024-09-26 20:24] LABS: Potassium 3.8 mmol/L (3.3-5.1)
[2024-09-26] MEDS: Amitriptyline HCl 10 MG TABLET PO (22:53)
[2024-09-26] MEDS: 0.9 % Sodium Chloride Flush 3 ML SYRINGE IVFLUSH (23:32)
[2024-09-27 04:55] LABS: Basophils Percent Auto 0.2 % (0-2); Hematocrit 35.5 % (37.0-47.0); Hemoglobin 12.3 g/dl (12.0-16.0); Imm Gran Abs Auto 0.06 X10*3/uL (0.00-0.03); Imm Gran Pct Auto 0.4 % (0.0-0.4); Lymphocytes Absolute Auto 0.7 X10*3/uL (1.2-4.9); Lymphocytes Percent Auto 4.8 % (20-40); MANUAL DIFF FLAG SCAN; Mean Corpuscular HGB Conc 34.6 g/dl (31.0-35.0); Mean Corpuscular Volume 86.6 fL (80.0-98.0); Mean Platelet Volume 9.3 fL (9.4-12.3); Monocytes Absolute Auto 0.2 X10*3/uL (0.1-1.2); Monocytes Percent Auto 1.4 % (2-11); Neutrophils Absolute Auto 12.9 x10*3/uL (2.0-8.3); Neutrophils Percent Auto 93.2 % (45-73); Platelet Count 294 X10*3/uL (160-400); Red Cell Distribution Width 12.2 % (11.0-16.0); SCAN SMEAR FLAG 1; White Blood Count 13.9 X10*3/uL (4.8-10.8)
[2024-09-27 05:13] LABS: Rheumatoid Factor < 13.0 IU/mL (<15.0)
[2024-09-27 05:14] LABS: SLIDE REVIEW VERIFIED
[2024-09-27 05:15] LABS: Alanine Aminotransferase 11 U/L (0-31); Albumin Level 3.9 g/dL (3.5-5.0); Alkaline Phosphatase 72 U/L (39-117); Anion Gap 15 (12-20); Aspartate Amino Transferase 21 U/L (5-31); Bilirubin Total 0.4 mg/dL (0.0-1.0); Blood Urea Nitrogen 6 mg/dL (9-16); Calcium 8.7 mg/dL (8.4-10.2); Carbon Dioxide 24 mmol/L (22-29); Chloride 103 mmol/L (96-108); Creatinine Clr Calc Pharmacy 86.3; Estimated Glomerular Filt Rate > 60; Glucose Random 163 mg/dL (60-115); Potassium 3.6 mmol/L (3.3-5.1); Sodium 138 mmol/L (135-145)
[2024-09-27 05:22] VITALS: BP 133/69; PULSE 96; RESP 16; TEMP 36.4; O2SAT 96
[2024-09-27 07:10] VITALS: BP 142/80; PULSE 98; RESP 15; TEMP 36.6; O2SAT 95
[2024-09-27] MEDS: Enoxaparin Sodium 40 MG/0.4 ML SYRINGE SUBCUT (08:24)
[2024-09-27] MEDS: Escitalopram Oxalate 10 MG TABLET PO (08:24)
[2024-09-27] MEDS: Famotidine/PF 20 MG/2 ML VIAL IVPUSH ×2 (08:24→21:04)
[2024-09-27] MEDS: guaiFENesin DM 200/20/10 ML 10 ML SYRUP PO (08:25)
[2024-09-27] MEDS: 0.9 % Sodium Chloride Flush 3 ML SYRINGE IVFLUSH ×3 (08:26→21:08)
--- NOTE | 2024-09-27 08:39 | PC.NURSE ---
AM med pass completed. Pt request PRN cough suppressant at this time. Awaiting for deli\very of nasal spray from Pharmacy. Pt reports Egg allergy at this time---allergy profile updated. Pt resting quietly awaiting inpatient room.
--- NOTE | 2024-09-27 09:18 | MHC.CM.PN ---
CM met with Patient at bedside, in the ED. Patient lives in a house with her 18 year old Son and she required no services nor DME PERSONAL CAREGIVER. Home/self care is Patient's goal and CM has initiated and will follow for dc planning. Patient is in between PCP's but her newly assigned PCP will be from [facility]. Sister will transport to home at time of dc.
[2024-09-27 10:00] VITALS: BP 130/64; PULSE 104; RESP 16; TEMP 36.7; O2SAT 96
[2024-09-27] MEDS: Fluticasone Propionate Nasal 16 GM SPRAY 2 SPRAY NOSTRIL-B (10:18)
--- NOTE | 2024-09-27 13:01 | P.PNIM_ITS ---
Subjective Subjective Date of Service: 09/27/24 Interval History: seen and evaluated this morning feels better swallowing improving no other event Review of Systems Review of Systems: Yes all other systems are reviewed and are negative Physical Exam 2 Vital Signs: Vital Signs: Last Vital Signs Temp 98.1 F 09/27/24 10:00 Pulse 104 H 09/27/24 10:00 Resp 16 09/27/24 10:00 BP 130/64 09/27/24 10:00 Pulse Ox 96 09/27/24 10:00 O2 Del Method Room Air 09/27/24 10:00 BMI result Body Mass Index 22.5 Const: Other: Constitutional : Awake, interactive, not in distress Neck : Normal inspection, Supple Cardiovascular : RRR, no JVP, no lower extremity edema Respiratory : good bilateral air entry, no crackles, wheezes or rhonchi Gastrointestinal: soft, lax, Normal bowel sounds, Non tender Skin : Warm, Dry Neurological : Alert & oriented x3, No focal deficit Objective Data Active Medications Acetaminophen (Acetaminophen 325 Mg Tablet) 650 mg PO Q6H PRN PRN Reason: Pain, Mild 1-3,fever,headache Amitriptyline HCl (Amitriptyline Hcl 10 Mg Tablet) 10 mg PO BEDTIME [facility] Last Admin: 09/26/24 22:53 Dose: 10 mg Documented By: RADHA Benzocaine (Throat Lozenge, Medicated Lozenge) 1 lozenge MUCOUS MEM Q2H PRN PRN Reason: Sore Throat Calcium Carbonate (Calcium Carbonate 750 Mg Tab.Chew) 750 mg PO Q4H PRN PRN Reason: Heartburn Ceftriaxone Sodium (Ceftriaxone Sodium 1 Gm Vial) 1 gm IVPUSH Q24H [facility] Enoxaparin Sodium (Enoxaparin Sodium 40 Mg/0.4 Ml Syringe) 40 mg SUBCUT Q24H [facility] Last Admin: 09/27/24 08:24 Dose: 40 mg Documented By: DORIE Escitalopram Oxalate (Escitalopram Oxalate 10 Mg Tablet) 10 mg PO DAILY [facility] Last Admin: 09/27/24 08:24 Dose: 10 mg Documented By: DORIE Famotidine (Famotidine/Pf 20 Mg/2 Ml Vial) 20 mg IVPUSH BID [facility] Last Admin: 09/27/24 08:24 Dose: 20 mg Documented By: DORIE Fluticasone Propionate (Fluticasone Propionate Nasal 16 Gm [place]) 2 spray NOSTRIL-B DAILY [facility] Last Admin: 09/27/24 10:18 Dose: 2 spray Documented By: DORIE Guaifenesin/Dextromethorphan (Guaifenesin Dm 200/20/10 Ml 10 Ml Syrup) 10 ml PO Q4H PRN PRN Reason: Cough Last Admin: 09/27/24 08:25 Dose: 10 ml Documented By: DORIE Azithromycin 500 mg/ Sodium (Chloride) 250 mls @ 125 mls/hr IV Q24H [facility] Magnesium Hydroxide (Milk Of Magnesia 30 Ml Oral.Susp) 30 ml PO DAILY PRN PRN Reason: Constipation Melatonin (Melatonin 3 Mg Tablet) 6 mg PO BEDTIME PRN PRN Reason: Insomnia Methylprednisolone Sodium Succinate (Methylprednisolone Sod Succ 125 Mg Vial) 60 mg IVPUSH DAILY [facility] Last Admin: 09/27/24 08:25 Dose: 60 mg Documented By: DORIE Sodium Chloride (0.9 % Sodium Chloride Flush 3 Ml Syringe) 3 ml IVFLUSH QSHIFT [facility] Last Admin: 09/27/24 08:26 Dose: 3 ml Documented By: DORIE Labs 09/27/24 03:58 09/27/24 03:58 Labs: Laboratory Results - last 24 hr 09/26/24 09/26/24 09/26/24 13:56 13:57 16:10 MCV 87.5 MCH 29.5 MCHC 33.7 RDW 12.3 Plt Count 340 MPV 9.0 L Immature Gran % (Auto) 0.4 Neut % (Auto) 87.2 H Lymph % (Auto) 6.0 L [place] % (Auto) 5.4 Eos % (Auto) 0.6 Baso % (Auto) 0.4 Lymph # (Auto) 0.9 L [place] # (Auto) 0.8 Eos # (Auto) 0.1 Baso # (Auto) 0.1 Abs Immat Gran (auto) 0.05 H Absolute Neuts (auto) 12.3 H Absolute Nucleated RBC 0.000 Nucleated RBC % (auto) 0.0 Smear Tech's Comments ESR 66 H VBG pH VBG pCO2 VBG pO2 VBG HCO3 VBG O2 Saturation VBG Base Excess Anion Gap 15 Estim Creat Clear Calc 71.1 Estimated GFR > 60 Random Glucose 113 Lactic Acid 2.1 H* Lactic Acid F/U @ 2Hr Calcium 9.4 Magnesium 2.1 Total Bilirubin 0.6 Direct Bilirubin 0.2 AST 27 ALT 16 Alkaline Phosphatase 84 Troponin I High Sens 14.9 C-Reactive Protein 6.95 H B-Natriuretic Peptide 16 Total Protein 7.9 Albumin 4.5 Procalcitonin 0.03 TSH 0.94 Rheumatoid Factor 09/26/24 09/26/24 09/27/24 16:16 18:25 03:58 MCV 86.6 MCH 30.0 MCHC 34.6 RDW 12.2 Plt Count 294 MPV 9.3 L Immature Gran % (Auto) 0.4 Neut % (Auto) 93.2 H Lymph % (Auto) 4.8 L [place] % (Auto) 1.4 L Eos % (Auto) 0.0 Baso % (Auto) 0.2 Lymph # (Auto) 0.7 L [place] # (Auto) 0.2 Eos # (Auto) 0.0 Baso # (Auto) 0.0 Abs Immat Gran (auto) 0.06 H Absolute Neuts (auto) 12.9 H Absolute Nucleated RBC 0.000 Nucleated RBC % (auto) 0.0 Smear Tech's Comments VERIFIED ESR VBG pH 7.46 H VBG pCO2 43 VBG pO2 45 VBG HCO3 31 H VBG O2 Saturation 64.0 VBG Base Excess 6.9 Anion Gap 15 Estim Creat Clear Calc 86.3 Estimated GFR > 60 Random Glucose 163 H Lactic Acid Lactic Acid F/U @ 2Hr 1.2 Calcium 8.7 D Magnesium Total Bilirubin 0.4 Direct Bilirubin AST 21 ALT 11 Alkaline Phosphatase 72 Troponin I High Sens C-Reactive Protein B-Natriuretic Peptide Total Protein 7.0 Albumin 3.9 Procalcitonin TSH Rheumatoid Factor < 13.0 Assessment and Plan (1) Pneumonia: Status: Acute (2) Acute hypokalemia: Status: Acute (3) Atypical pneumonia: Status: Acute Plan Kayla Chen is a 49 y/o woman with: Pneumonia viral vs fungal infection, possible superimposed bacterial pneumonia DDx: cryptogenic organizing pneumonia, granulomatosis with polyangiitis, sarcoidosis and neoplasm. Telemetry. Pulse oximetry. Supplemental O2 to keep O2 sats > 90%. Continue empiric IV antibiotic therapy. IV steroids. ANCA, RF, ELISEO, KOLBY, HIV, sputum culture for fungal infection Pulmonology and ID consult Sinus tachycardia and leukocytosis, likely secondary to above No significant lactic acidosis No hypotension or fever. No severe sepsis Receive around 3.5 L of normal saline/LR Blood culture pending Bilateral breast nodules following as an outpatient. DVT prophylaxis: Code status: Full Patient will need hospitalization for overnight for pneumonia treatment/management with IV antibiotics, IV steroids and close monitoring of vital signs; she will also need evaluation by subspecialties. Quality Stroke Does the patient have a stroke diagnosis?: No VTE Prior VTE?: No VTE Risk Level:: Medical - moderate - high VTE Device Contraindication: Treatment Not Indicated VTE Drug Contraindication: N/A - Med Ordered
[2024-09-27 14:28] LABS: Adenovirus PCR Not Detected (Not Detect.); Bordetella parapertussis PCR Not Detected (Not Detect.); Bordetella pertussis PCR Not Detected (Not Detect.); Chlamydia pneumoniae PCR Detected (Not Detect.); Coronavirus 229E PCR Not Detected (Not Detect.); Coronavirus HKU1 PCR Not Detected (Not Detect.); Coronavirus NL63 PCR Not Detected (Not Detect.); Coronavirus OC43 PCR Not Detected (Not Detect.); Human metapneumovirus PCR Not Detected (Not Detect.); Influenza A PCR Not Detected (Not Detect.); Influenza B PCR Not Detected (Not Detect.); Mycoplasma pneumoniae PCR Not Detected (Not Detect.); Parainfluenza 1 PCR Not Detected (Not Detect.); Parainfluenza 2 PCR Not Detected (Not Detect.); Parainfluenza 3 PCR Not Detected (Not Detect.); Parainfluenza 4 PCR Not Detected (Not Detect.); RSV PCR Not Detected (Not Detect.); Rhino/Enterovirus PCR Not Detected (Not Detect.)
[2024-09-27 14:34] LABS: Influenza A H1 PCR Not Detected (Not Detect.); Influenza A H1-2009 PCR Not Detected (Not Detect.); Influenza A H3 PCR Not Detected (Not Detect.); SARS-CoV-2 PCR Not Detected (Not Detect.)
--- NOTE | 2024-09-27 15:12 | P.CONPL_ITS ---
History of Present Illness History of Present Illness Consult date: 09/27/24 Chief complaint: Pneumonia Narrative: 49-year-old lady with no significant underlying past medical history, nonsmoker, admitted on 09/26/2024 with sore throat, difficulty swallowing, and productive cough. Her CT chest demonstrated left-sided pneumonia with small cavitary lesion, but no abscess formation. Patient was treated with empiric antibiotics with slow improving. Review of Systems 2 Constitutional: Constitutional: Denies daytime sleepiness, Denies excessive sweating, Denies fatigue, Denies fever(s), Denies lethargy, Denies malaise, Denies night sweats, Denies snoring and Denies weight loss Eyes: Eyes: Denies blurry vision and Denies itchy eyes ENT: Denies nasal congestion, Denies post nasal drip, Denies sinus pain, Denies sinus pressure and Denies other ( Thrush) Cardiovascular: Cardiovascular: Denies chest pain, Denies pedal edema, Denies dyspnea, Denies orthopnea and Denies paroxysmal nocturnal dyspnea Respiratory: Respiratory: Reports cough, Denies hemoptysis, Reports excessive phlegm production, Denies dyspnea, Denies snoring and Denies wheezing Gastrointestinal: Gastrointestinal: Denies abdominal pain and Denies heartburn Musculoskeletal: Musculoskeletal: Denies myalgias, Denies arthralgias and Denies joint swelling Integumentary/Breasts: Skin/Breast: Denies rash Neurologic: Denies memory loss and Denies seizure-like activity Psychiatric: Psychiatric: Denies abnormal sleep pattern, Denies anxiety and Denies memory loss Endocrine: Endocrine: Denies excessive sweating, Denies fatigue and Denies heat intolerance Hematologic/Lymphatic: Hematologic/Lymphatic: Denies easy bruising Allergic/Immunologic: Allergic/Immunologic: Denies itchy eyes, Denies seasonal rhinorrhea and Denies wheezing PMFSH Social History Social History Patient Tobacco Use Status: Never used Tobacco Smoked in Last 30 Days: No Use of substances other than those prescribed or required for medical reasons: No Advance Directives: No Advance Directives Information Provided: Yes Do you have a plan to hurt others: No Plan Nutrition Risks: No Nutritional Risk Patient : No service: No Meds Allergies Allergy/AdvReac Type Severity Reaction Status Date / Time egg [eggs] Allergy Hives Verified 09/27/24 08:39 Active Medications: Current Medications Acetaminophen (Acetaminophen 325 Mg Tablet) 650 mg PO Q6H PRN PRN Reason: Pain, Mild 1-3,fever,headache Amitriptyline HCl (Amitriptyline Hcl 10 Mg Tablet) 10 mg PO BEDTIME [facility] Last Admin: 09/26/24 22:53 Dose: 10 mg Benzocaine (Throat Lozenge, Medicated Lozenge) 1 lozenge MUCOUS MEM Q2H PRN PRN Reason: Sore Throat Calcium Carbonate (Calcium Carbonate 750 Mg Tab.Chew) 750 mg PO Q4H PRN PRN Reason: Heartburn Ceftriaxone Sodium (Ceftriaxone Sodium 1 Gm Vial) 1 gm IVPUSH Q24H [facility] Enoxaparin Sodium (Enoxaparin Sodium 40 Mg/0.4 Ml Syringe) 40 mg SUBCUT Q24H [facility] Last Admin: 09/27/24 08:24 Dose: 40 mg Escitalopram Oxalate (Escitalopram Oxalate 10 Mg Tablet) 10 mg PO DAILY [facility] Last Admin: 09/27/24 08:24 Dose: 10 mg Famotidine (Famotidine/Pf 20 Mg/2 Ml Vial) 20 mg IVPUSH BID [facility] Last Admin: 09/27/24 08:24 Dose: 20 mg Fluticasone Propionate (Fluticasone Propionate Nasal 16 Gm [place]) 2 spray NOSTRIL-B DAILY [facility] Last Admin: 09/27/24 10:18 Dose: 2 spray Guaifenesin/Dextromethorphan (Guaifenesin Dm 200/20/10 Ml 10 Ml Syrup) 10 ml PO Q4H PRN PRN Reason: Cough Last Admin: 09/27/24 08:25 Dose: 10 ml Azithromycin 500 mg/ Sodium (Chloride) 250 mls @ 125 mls/hr IV Q24H [facility] Magnesium Hydroxide (Milk Of Magnesia 30 Ml Oral.Susp) 30 ml PO DAILY PRN PRN Reason: Constipation Melatonin (Melatonin 3 Mg Tablet) 6 mg PO BEDTIME PRN PRN Reason: Insomnia Methylprednisolone Sodium Succinate (Methylprednisolone Sod Succ 125 Mg Vial) 60 mg IVPUSH DAILY [facility] Last Admin: 09/27/24 08:25 Dose: 60 mg Sodium Chloride (0.9 % Sodium Chloride Flush 3 Ml Syringe) 3 ml IVFLUSH QSHIFT [facility] Last Admin: 09/27/24 08:26 Dose: 3 ml Home Medications ?Medication ?Instructions ?Recorded ?Confirmed ?Last Taken ?Type amitriptyline 10 mg tablet 10 mg PO BEDTIME 06/11/25 06/11/25 06/10/25 History escitalopram oxalate 10 mg tablet 10 mg PO DAILY 09/26/24 09/26/24 09/25/24 History estradiol-norethindrone acet 1 1 tab PO DAILY 09/26/24 09/26/24 09/25/24 History mg-0.5 mg tablet fluticasone propionate 50 2 spray intranasal QAM 09/26/24 09/26/24 09/25/24 History mcg/actuation nasal spray,suspension Physical Exam 2 Vital Signs: Vital Signs: Last Vital Signs Temp 98.1 F 09/27/24 10:00 Pulse 104 H 09/27/24 10:00 Resp 16 09/27/24 10:00 BP 130/64 09/27/24 10:00 Pulse Ox 96 09/27/24 10:00 O2 Del Method Room Air 09/27/24 10:00 BMI result Body Mass Index 22.5 Const: General: no acute distress, alert and awake Eyes: Sclerae: sclerae normal EOM: EOMs intact bilaterally Neck: Neck: Yes no lymphadenopathy, Yes trachea midline and Yes supple Resp: Effort & Inspection: normal respiratory effort and no respiratory distress Auscultation: clear to auscultation bilaterally Cardio: Rate: regular rate Rhythm: regular rhythm Heart sounds: no gallops, no murmurs and no rubs GI: Palpation (GI): Soft to palpation and Other GI palpation findings present ( Nontender) Auscultation: normal bowel sounds Extrem: General: Yes no pedal edema, No clubbing and No cyanosis Results Laboratory Findings 09/27/24 03:58 09/27/24 03:58 Abnormal lab findings: Abnormal Labs 09/26/24 09/26/24 09/26/24 13:56 16:10 16:16 WBC 14.1 H RBC Hct MPV 9.0 L Neut % (Auto) 87.2 H Lymph % (Auto) 6.0 L [place] % (Auto) Lymph # (Auto) 0.9 L Abs Immat Gran (auto) 0.05 H Absolute Neuts (auto) 12.3 H ESR 66 H VBG pH 7.46 H VBG HCO3 31 H Potassium 3.0 L Chloride 95 L BUN 7 L Random Glucose Lactic Acid 2.1 H* C-Reactive Protein 6.95 H C. pneumoniae DNA (PCR) 09/26/24 09/27/24 21:00 03:58 WBC 13.9 H RBC 4.10 L Hct 35.5 L MPV 9.3 L Neut % (Auto) 93.2 H Lymph % (Auto) 4.8 L [place] % (Auto) 1.4 L Lymph # (Auto) 0.7 L Abs Immat Gran (auto) 0.06 H Absolute Neuts (auto) 12.9 H ESR VBG pH VBG HCO3 Potassium Chloride BUN 6 L Random Glucose 163 H Lactic Acid C-Reactive Protein C. pneumoniae DNA (PCR) Detected A Assessment and Plan (1) Pneumonia: Qualifiers: Pneumonia type: due to unspecified organism Laterality: left Lung location: lower lobe of lung Qualified Code(s): J18.9 - Pneumonia, unspecified organism Status: Acute Plan Impression: 49-year-old lady admitted with community-acquired pneumonia with CT chest showing small cavitary lesion, but no abscess formation. Recommendations: Agree with empiric antibiotic coverage for community-acquired pneumonia. Would suggest repeating CT chest in 6-8 weeks with further follow-up by PCP or pulmonary office. Procedures Date of Service Date of Service: 09/27/24
[2024-09-27 15:20] VITALS: BMI 22.0
[2024-09-27 15:45] VITALS: BP 132/63; PULSE 100; RESP 18; TEMP 36.4; O2SAT 95
[2024-09-27] MEDS: cefTRIAXone sodium 1 GM VIAL IVPUSH (16:01)
[2024-09-27] MEDS: Azithromycin 500 MG in 0.9 % Sodium Chloride 250 ML 125 MG IV (16:01)
[2024-09-27 19:55] VITALS: BP 128/59; PULSE 91; RESP 18; TEMP 36.9; O2SAT 94
[2024-09-27] MEDS: Amitriptyline HCl 10 MG TABLET PO (21:04)
[2024-09-27 23:53] VITALS: BP 123/58; PULSE 100; RESP 16; TEMP 36.9; O2SAT 96
[2024-09-28] MEDS: guaiFENesin DM 200/20/10 ML 10 ML SYRUP PO ×2 (00:24→08:41)
[2024-09-28 03:54] VITALS: BP 120/56; PULSE 101; RESP 16; TEMP 36.6; O2SAT 95
[2024-09-28 06:52] LABS: MANUAL DIFF FLAG NO
[2024-09-28 07:02] LABS: Basophils Percent Auto 0.2 % (0-2); Eosinophils Percent Auto 0.1 % (0-4); Hematocrit 35.4 % (37.0-47.0); Hemoglobin 12.1 g/dl (12.0-16.0); Imm Gran Abs Auto 0.09 X10*3/uL (0.00-0.03); Imm Gran Pct Auto 0.7 % (0.0-0.4); Lymphocytes Absolute Auto 2.1 X10*3/uL (1.2-4.9); Lymphocytes Percent Auto 15.6 % (20-40); Mean Corpuscular HGB Conc 34.2 g/dl (31.0-35.0); Mean Corpuscular Hemoglobin 29.9 pg (27.0-33.0); Mean Corpuscular Volume 87.4 fL (80.0-98.0); Mean Platelet Volume 9.3 fL (9.4-12.3); Monocytes Absolute Auto 0.9 X10*3/uL (0.1-1.2); Monocytes Percent Auto 6.9 % (2-11); Neutrophils Absolute Auto 10.2 x10*3/uL (2.0-8.3); Neutrophils Percent Auto 76.5 % (45-73); Platelet Count 321 X10*3/uL (160-400); Red Blood Count 4.05 X10*6/uL (4.20-5.50); Red Cell Distribution Width 12.3 % (11.0-16.0); White Blood Count 13.3 X10*3/uL (4.8-10.8)
[2024-09-28 07:13] LABS: Anion Gap 11 (12-20); Blood Urea Nitrogen 12 mg/dL (9-16); Calcium 9.4 mg/dL (8.4-10.2); Carbon Dioxide 30 mmol/L (22-29); Chloride 103 mmol/L (96-108); Creatinine Clr Calc Pharmacy 78.5; Estimated Glomerular Filt Rate > 60; Glucose Random 115 mg/dL (60-115); Potassium 3.1 mmol/L (3.3-5.1); Sodium 141 mmol/L (135-145)
[2024-09-28 07:15] VITALS: BP 113/57; PULSE 94; RESP 16; TEMP 36.4; O2SAT 97
[2024-09-28] MEDS: Throat Lozenge, Medicated LOZENGE 1 LOZENGE MUCOUS MEM (08:41)
[2024-09-28] MEDS: Potassium Chloride Packet 20 MEQ PACKET 40 MEQ PO (08:42)
[2024-09-28] MEDS: Escitalopram Oxalate 10 MG TABLET PO (08:43)
[2024-09-28] MEDS: 0.9 % Sodium Chloride Flush 3 ML SYRINGE IVFLUSH (08:44)
[2024-09-28] MEDS: Famotidine/PF 20 MG/2 ML VIAL IVPUSH (08:44)
[2024-09-28] MEDS: Enoxaparin Sodium 40 MG/0.4 ML SYRINGE SUBCUT (08:46)
[2024-09-28] MEDS: Fluticasone Propionate Nasal 16 GM SPRAY 2 SPRAY NOSTRIL-B (08:46)
--- NOTE | 2024-09-28 10:24 | P.DS_ITS ---
DS: Providers Provider Date of Service: 09/28/24 Date of admission: 09/26/24 16:16 Date of discharge: 09/28/24 Primary care physician: Unknown Physician Consults: 09/26/24 22:17 Consult to Pulmonology Routine Consulting Provider: [facility] Reason for consultation: Pleural-based consolidation with surrounding groundglass Has provider been notified: No 09/26/24 22:34 Consult to Infectious Diseases Routine Consulting Provider: [facility] Reason for consultation: Pneumonia Has provider been notified: No DS: Diagnosis Discharge Diagnosis (1) Pneumonia: Status: Acute (2) Breast nodule: Status: Acute (3) Acute hypokalemia: Status: Acute (4) Sepsis: Status: Acute DS: Summary Hospital Course Hospital Course: Admission note HPI Kayla Chen is a 49 years old with no significant past medical history presents to the emergency department complaining of 3-day history of sore throat and difficulty swallowing due to pain. She also reports productive sputum (it was dry initially). Patient has been able to swallow will need to but has some difficulty with solids due to pain. She denied fever or chills. She also denied chest pain, shortness on breath, muscle aches or wheezing. Denied any a cute gastrointestinal or genitourinary symptoms. See used to smoke tobacco in the past. Denied alcohol abuse or illicit drug use. Patient mentioned that she had a similar episode in the past that resolved after she received treatment with Pepcid. She denied recent contact with ill people or recent travel. In the ED, she was found to significant tachycardia at 123 bpm. Blood pressure, oxygen saturation temperature are unremarkable. Blood workup showed leukocytosis of 14.1. Hemoglobin and platelets are normal. Venous blood gas showed no respiratory acidosis. Potassium was 3.0 initially. Most recent potassium level is 3.8. There are no other significant electrolyte imbalances. Lactic acid was minimally elevated, 2.1 (repeat is normal). LFTs, troponin and BNP and normal. CRP is 6.95. TSH is 0.94 and procalcitonin 0.03. Chest CT scan without contrast showed pleural-based consolidation with surrounding ground-glass in the left lower lobe and bilateral breast nodules. ECG showed sinus tachycardia, heart rate 118 bpm without ischemic changes. ED tx: Ceftriaxone 1 g IV, azithromycin 500 mg IV, ketorolac 15 mg IV NS 2,677 ml bolus. Solu-Medrol 60 mg IV Hospital course The patient met sepsis at time of admission as a result of Pneumonia as Chest CT scan showed left sided infiltrates. Treated with IV antibiotics of Ceftriaxone and Azithromycin with good response as her heart rate improved and sore throat resolved. she was able to ambulate on room air with no reported dyspnea or shortness of breath. Pending ANCA, RF, ELISEO, KOLBY, HIV, sputum culture for fungal infection Pulmonology evaluated the patient and recommended treating as lung infection and follow as outpatient for repeat images in 1 month to check for resolution. CT also reported Bilateral breast nodules which is known from before and she is following as an outpatient. Discharge plan Continue Azithromycin for 1 more week Cough medicine as needed Follow with Dr Freire office in 1 month for repeat images Time Attestation Discharge Coordination Time (in mins): 37 Quality: Safe Use of Opioids Does Pt have an Active Cancer Diagnosis on the Problem List?: No Quality: Stroke Does the patient have a stroke diagnosis?: No Physical Exam Vital Signs: Vital Signs: Last Vital Signs Temp 97.6 F 09/28/24 07:15 Pulse 94 09/28/24 07:15 Resp 16 09/28/24 07:15 BP 113/57 L 09/28/24 07:15 Pulse Ox 97 09/28/24 07:15 O2 Del Method Room Air 09/28/24 07:15 BMI result Body Mass Index 22.0 Const: Other: Constitutional : Awake, interactive, not in distress Neck : Normal inspection, Supple Cardiovascular : RRR, no JVP, no lower extremity edema Respiratory : good bilateral air entry, no crackles, wheezes or rhonchi Gastrointestinal: soft, lax, Normal bowel sounds, Non tender Skin : Warm, Dry Neurological : Alert & oriented x3, No focal deficit DS: Data Data Completed and Pending Labs on day of discharge: Laboratory Results - last 24 hr 09/26/24 09/28/24 21:00 06:24 WBC 13.3 H RBC 4.05 L Hgb 12.1 Hct 35.4 L MCV 87.4 MCH 29.9 MCHC 34.2 RDW 12.3 Plt Count 321 MPV 9.3 L Immature Gran % (Auto) 0.7 H Neut % (Auto) 76.5 H Lymph % (Auto) 15.6 L [place] % (Auto) 6.9 Eos % (Auto) 0.1 Baso % (Auto) 0.2 Lymph # (Auto) 2.1 [place] # (Auto) 0.9 Eos # (Auto) 0.0 Baso # (Auto) 0.0 Abs Immat Gran (auto) 0.09 H Absolute Neuts (auto) 10.2 H Absolute Nucleated RBC 0.000 Nucleated RBC % (auto) 0.0 Sodium 141 Potassium 3.1 L Chloride 103 Carbon Dioxide 30 H Anion Gap 11 L BUN 12 Creatinine 0.67 Estim Creat Clear Calc 78.5 Estimated GFR > 60 Random Glucose 115 Calcium 9.4 D Respiratory Panel Marie See Note Adenovirus (Rapid PCR) Not Detected B.pert (TEM-PCR) Not Detected B.parapertussis DNA PCR Not Detected C. pneumoniae DNA (PCR) Detected A Coronavirus OC43 (PCR) Not Detected Coronavirus HKU1 (PCR) Not Detected Coronavirus 229E (PCR) Not Detected Coronavirus NL63 (PCR) Not Detected Human Metapneumovir PCR Not Detected Influenza A (RT-PCR) Not Detected Influenza A (H1) PCR Not Detected Influ A (H1/09) PCR Not Detected Influenza A (H3) PCR Not Detected Influenza B (RT-PCR) Not Detected M. pneumoniae (PCR) Not Detected Parainfluenza 1 (PCR) Not Detected Parainfluenza 2 (PCR) Not Detected Parainfluenza 3 (PCR) Not Detected Parainfluenza 4 (PCR) Not Detected RSV (PCR) Not Detected Entero/Rhino (PCR) Not Detected SARS-CoV-2 RNA (RT-PCR) Not Detected Preliminary micro results at discharge 09/26/24 15:44 Blood Culture - Preliminary Blood - Venous No growth after 24 hours. 09/26/24 15:44 Blood Culture - Preliminary Blood - Venous No growth after 24 hours. Imaging Chest x-ray: Radiologist's impression: ITS Impressions Chest CT 09/26/24 10:39 IMPRESSION: 1. Pleural-based consolidation with surrounding groundglass and an additional halo of consolidation in the left lower lobe measuring 5.1 x 6.0 x 3.7 cm in aggregate. The appearance is not typical for bacterial pneumonia. Differential diagnostic considerations include cryptogenic organizing pneumonia, fungal or other infectious etiology, granulomatosis with polyangiitis sarcoidosis, and neoplasm. Clinical correlation is recommended. Tissue sampling may be necessary. 2. Bilateral breast nodules as described for which mammography and ultrasound are recommended. Electronically signed by: Justin Sylvester MD 09/26/2024 12:43 PM EDT RP Discharge Plan Discharge Anticipated Discharge Date/Time: 09/28/24 10:18 Patient Disposition: Home, Self-Care Discharge Diagnosis: Chlamydia pneumonia Referrals: Physician,Unknown J [Primary Care Provider] - 1 Week Discharge Medications: New azithromycin 500 mg tablet 500 mg PO DAILY 7 Days Qty: 7 0RF codeine-guaifenesin 10-100 mg/5 mL liquid 10 ml PO Q6H PRN (Reason: cough) Qty: 473 0RF Continued estradiol-norethindrone acet 1-0.5 mg tablet 1 tab PO DAILY amitriptyline 10 mg tablet 10 mg PO BEDTIME fluticasone propionate 50 mcg/actuation spray,suspension 2 spray intranasal QAM escitalopram oxalate 10 mg tablet 10 mg PO DAILY Discharge Orders: Discharge Order (Routine); Ordered 09/28/24 Ordered By: Jennifer Michael Diet: Advance to usual diet Activity on Discharge: As tolerated Stand Alone Forms: Patient Portal Discharge page Print Language: Latvian Care Plan Goals: Continue Azithromycin for 1 more week Cough medicine as needed Follow with Dr Freire office in 1 month for repeat images Health Concerns: Pneumonia Plan of Treatment: Antibiotics Assessment: as above
--- NOTE | 2024-09-28 10:46 | MHC.CM.PN ---
Pt has been medically cleared for DC, she will go home via family transport, plan is self care.
[2024-09-28 21:18] LABS: Myeloperoxidase Antibody <1.0 AI; Proteinase 3 PR3 Antibodies <1.0 AI
[2024-09-30 03:25] LABS: Angiotensin Converting Enzyme 11 U/L (9-67)
[2024-10-01 10:39] LABS: Anti Nuclear Antibody Screen NEGATIVE (NEGATIVE)
[2024-10-02 07:39] LABS: HIV RNA PCR Qn Copies Not Detected Copies/mL; HIV RNA PCR Qn Log Copies Not Detected Log cps/mL
--- NOTE | 2024-10-05 17:35 | P.CDIM_ITS ---
PROVIDER RESPONSE TEXT: To clarify, the appropriate diagnosis supported by the clinical indicators: Bacterial pneumonia: Chlamydia pneumonia QUERY TEXT: PHYSICIAN'S DOCUMENTATION REQUEST Date of Query: 10/05/2024 09:57 AM EDT Patient Name: Kayla Chen Admit Date: 09/26/2024 Dear Jennifer Michael MD, RETROSPECTIVE QUERY A review of the medical record indicates additional documentation may be needed. Please review below and update the documentation accordingly. Clinical Indicators: Arrived Ed with sore throat, difficulty swallowing, productive sputum, Chest CT - pleural-based consolidation with surrounding ground-glass in the left lower lobe. Ceftriaxone, azithromycin, ketorolac, NS bolus, Solumedrol. Progress note dated 09/27/24 - viral vs. fungal infection, possible superimposed bacterial pneumonia. Discharge summary dated 09/28/24 - Addendum: Discharged on Azithromycin for 7 more days as she tested positive for Chlamydia Pneumoniae. Based on the above, could you clarify in the Progress Notes further specificity regarding the most likely type of pneumonia you suspect you are treating (even if specific organism may not be known)? Bacterial pneumonia Please indicate Chlamydia pneumonia, Gram neg, Gram positive, Staph etc. Viral Pneumonia Please indicate parainfluenza, RSV, adenovirus, influenza (indicate type), etc. Other organism Please specify known or suspected organism Other (explain) Clinically unable to determine (explain) Thank you, Ange Sanchez, CCS, CDIS Use of terms such as suspected, likely, concern for, or probable (associated with a specific diagnosis that is being evaluated, monitored, or treated as if it exists) are acceptable and can be coded in the inpatient setting, when documented at the time of discharge. Please use your independent medical judgment in providing your response. THIS QUERY IS PART OF THE PERMANENT MEDICAL RECORD
== END 2024-09-28 13:31 | disposition home or self-care (01) | DRG 195 ==
LOC: HO.ED 16:18 → HO.EDOVER 16:35 → HO.S3 19:18 → HO.EDOVER 20:11 → HO.IMC 09-27 13:52
PROVIDERS: Emergency Medicine; Admitting Provider Internal Medicine; Emergency Provider Emergency Medicine Emergency Medical Services; Visit Provider Student in an Organized Health Care Education/Training Program
DX: J16.0 Chlamydial pneumonia (principal); E87.6 Hypokalemia; N63.20 Unspecified lump in the left breast, unspecified quadrant; N63.10 Unspecified lump in the right breast, unspecified quadrant; J98.4 Other disorders of lung; Z20.822 Contact with and (suspected) exposure to COVID-19; Z79.899 Other long term (current) drug therapy
CPT/HCPCS: 0241U; 36415; 71250; 80048; 80053; 80076; 82164; 82803; 83605; 83735; 83880; 84132; 84145; 84443; 84484; 85025; 85652; 86021; 86038; 86140; 86431; 87040; 87102; 87536; 87633; 87651; 87900; 93005; 99285; J0456; J0696; J1308; J1650; J1885; J2919; J3480; J7120

== ENCOUNTER → 2024-09-26 10:41 | Outpatient (BNV) | payer OTHER, SELFPAY | PROVIDERS: Visit Provider Radiology Diagnostic Radiology | DX: J98.4 Other disorders of lung (principal); N63.0 Unspecified lump in unspecified breast | CPT/HCPCS: 71250 ==

== ENCOUNTER → 2024-09-26 13:43 | Outpatient (BNV) | payer OTHER, SELFPAY | PROVIDERS: Emergency Provider Emergency Medicine Emergency Medical Services; Visit Provider Internal Medicine Cardiovascular Disease | DX: R00.0 Tachycardia, unspecified (principal) | CPT/HCPCS: 93010 ==

== ENCOUNTER → 2024-09-26 16:16 | Outpatient (BNV) | payer OTHER, SELFPAY | PROVIDERS: Admitting Provider Internal Medicine; Emergency Provider Emergency Medicine Emergency Medical Services; Visit Provider Internal Medicine Pulmonary Disease | DX: J18.9 Pneumonia, unspecified organism (principal) | CPT/HCPCS: 99222 ==

== ENCOUNTER → 2024-09-26 16:16 | Outpatient (BNV) | payer OTHER, SELFPAY | PROVIDERS: Admitting Provider Internal Medicine; Emergency Provider Emergency Medicine Emergency Medical Services; Visit Provider Internal Medicine | DX: J18.9 Pneumonia, unspecified organism (principal); E87.6 Hypokalemia | CPT/HCPCS: 99232 ==

== ENCOUNTER 2024-10-11 14:46 | Outpatient (AMB) | payer OTHER, SELFPAY ==
--- NOTE | 2024-10-11 14:49 | MHC.OFFVIS ---
Vital Signs 10/11/24 15:00 Height 5 ft 2 in Weight 129 lb BMI 23.6 BP 144/74 H Blood Pressure Location Rt brachial Position Sitting Pulse 94 Pulse Source Pulse Oximeter Pulse Oximetry (%) 98 Oxygen Delivery Method Room Air Intake Visit Reasons: Colonoscopy Screening Intake Note: New pt for initial colo screening. CC; Pt denies any GI sx or concerns at this time. Pt was recently admitted for atypical pneumonia and had received Omeprazole previously as a trial for her cough but was later diagnosed with pneumonia. Private Client Advisor Required: No Accompanied by: Self / Same As Patient Allergies No Known Allergies Allergy (Verified 10/11/24 14:58) HPI HPI Colonoscopy Screening: Details: 49-year-old female here for preprocedural meeting to discuss a screening colonoscopy. She is referred by [facility]. PMX Allergic rhinitis Anxiety Headaches * SURGICAL HISTORY Bunionectomy D&C Tonsillectomy * ALLERGIES: NKDA * Xopik LABS: Laboratory Tests 09/27/24 09/28/24 03:58 06:24 WBC 13.3 H Hgb 12.1 Hct 35.4 L MCV 87.4 MCH 29.9 Plt Count 321 Estimated GFR > 60 Total Bilirubin 0.4 AST 21 ALT 11 Alkaline Phosphatase 72 TODAY'S VISIT This is her first colonoscopy. She denies any bowel or upper GI problems. She was hospitalized with an atypical pneumonia recently and has a lingering cough, no cardiac problems. No prior problems with anesthesia or sedation. NO ID problems. There is no known FHX of crc or polyps. [facility] Medical History Pneumonia Atypical pneumonia Sepsis Acute hypokalemia Anxiety and depression Perimenopausal Chronic headache Surgical History Hx of tonsillectomy H/O dilation and curettage History of bunionectomy Family History Father Dementia Malignant neoplasm of brain Malignant neoplasm of lung Maternal Grandmother Malignant neoplasm of breast Social History (Reviewed 10/11/24 @ 14:50 by Victoriano Wilson [facility]) Household Members: Family Housing: House Do you presently have visiting nurse or other home services: No Patient Tobacco Use Status: Never used Tobacco service: No Review of Systems Const Denies fatigue, Denies fever(s), Denies night sweats, Denies poor appetite and Denies weight loss ENT Reports Normal hearing present, Denies dysphagia, Denies odynophagia, Denies throat swelling and Denies tongue swelling Card Reports no additional complaints Resp Reports cough GI Details: Denies abdominal pain, Denies melena, Denies bloating, Denies hematochezia, Denies constipation, Denies GI cramping, Denies dysphagia, Denies excessive flatus, Denies early satiety, Denies heartburn, Denies diarrhea, Denies nausea, Denies odynophagia, Denies vomiting and Denies hematemesis Skin/Breast Denies pruritus, Denies lesions, Denies rash and Denies jaundice Neuro Reports Normal hearing present and Denies Abnormal speech present Endo Denies fatigue Aller/Immun Denies throat swelling and Denies tongue swelling Physical Exam Vital Signs: Last Vital Signs Pulse 94 10/11/24 15:00 BP 144/74 H 10/11/24 15:00 Pulse Ox 98 10/11/24 15:00 Oxygen Delivery Method Room Air 10/11/24 15:00 BMI result Body Mass Index 23.6 Const General: cooperative, no acute distress, well developed and well groomed Nutritional Appearance: well nourished, obese and overweight Orientation/consciousness: oriented to person, oriented to place and oriented to time Limitations: No language barrier, ambulation with cane, ambulation with walker and wheelchair HEENT Head: Yes normocephalic and Yes atraumatic Eyes General: appearance normal, both eyes and all related structures Pupils: Equal, round and reactive pupils present Neck Neck: Yes normal visual inspection and Yes no lymphadenopathy Thyroid: Thyroid normal Resp Effort & Inspection: normal respiratory effort and able to speak in complete sentences Auscultation: clear to auscultation bilaterally Cardio Rate: regular rate Rhythm: regular rhythm Heart sounds: Normal, physiologic split S2 sound present Peripheral pulses: radial pulses present and posterior tibial pulses present GI Inspection: No distended and No Abdominal panniculus present Palpation (GI): Soft to palpation, nontender, no guarding, not rigid, No hepatosplenomegaly present and Hepatosplenomegaly present Percussion: Yes normal to percussion Auscultation: normal bowel sounds Rectal Exam - Female: deferred Skin General skin exam: no rashes or lesions noted, turgor normal, skin not dry, no jaundice, No spider nevi and no striae Rashes: no rashes Nails: normal Neuro General: oriented to person, oriented to place and oriented to time Cranial nerves: Yes Equal, round and reactive pupils present and Yes Normal hearing present Speech: No Abnormal speech present Extrem General: Yes normal to inspection, No clubbing, No cyanosis and No edema Psych Appearance: grossly normal and well kempt Mental Status: mental status grossly normal Thought process: Normal thought process present and not confabulating Thought content: Normal thought content present Insight: Good insight present (Psych) Judgement: Good judgement present (Psych) Assessment & Plan Assessment & Plan (1) Pre-op examination: Code(s): Z01.818 - Encounter for other preprocedural examination Category: Medical Plan This is her first colonoscopy. She denies any bowel or upper GI problems. She was hospitalized with an atypical pneumonia recently and has a lingering cough, no cardiac problems. No prior problems with anesthesia or sedation. NO ID problems. There is no known FHX of crc or polyps. Orders: Orders Colonoscopy - GI Use Only Today Z01.818 - Encounter for other preprocedural examination Medications: New peg 3350-electrolytes 236-22.74-6.74 -5.86 gram (Golytely) until fecal effluent is clear; do not exceed a total volume of 2,000 mL 240 mL PO Q10M 4,000 mL 0RF 1 day Z12.11 - Encounter for screening for malignant neoplasm of colon bisacodyl (Dulcolax (bisacodyl)) 10 mg (2 x 5 mg) PO BEDTIME 4 tabs 0RF 2 days Coding Level of Care Code New Pt Level 3 (00066) Diagnoses Pre-op examination Z01.818
[2024-10-11 15:00] VITALS: BP 144/74; PULSE 94; O2SAT 98; BMI 23.6
--- OUTSIDE RECORDS SUMMARY | 2024-10-11 17:56 | XMS_ITS | Clinical Summary ---
Author Organization [facility] [address] [place] [address] Address [address] [place] [address] Phone Care Team Providers Care Activity Director Name Role Phone Tita Weber [employer]URAL G[employer] T[employer]ATING [employer]IT OPERATOR Primary Care Provider [phone] Allergies Active Allergy Reactions Criticality Noted Date [...] 50 mcg/actuation nasal spray by route. Active estradiol-noreth indrone (ACTIVELLA) 1-0.5 mg per tablet Take 1 tablet by mouth 1 (one) time each day. 90 each 1 09/11/2024 Active Active Problems Problem Noted Date Diagnosed Date Allergic rhinitis 06/20/2024 Anxiety 06/20/2024 Immunizations Name Administration Dates Next Due Influenza Quadravalent, MDCK , 0.5ml, preservative free (Flucelvax) 6mo and older 12/28/2018 Influenza trivalent, 0.5mL, preservative free (Fluarix; FluLaval; Fluzone) ages 6mo and older (Afluria) 3 years and older 01/05/2011 Surgical History Surgery Date Site/Laterality Comments OTHER SURGICAL HISTORY 02/2004 PROCEDURE: SC DILATION & CURETTAGE DX&/THER NONOBSTETRIC TONSILLECTOMY 1997 [...] Record ed Within the last 3 months, ho w many times did you visit the [...] care for your loved ones. For example, children's service supervisor or elderly care for an older adult? 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 Ovidio davila Delivery Location:[facility] Last Filed Vital Signs Vital Sign [...] Vaccines (1 of 2) 2023 COVID-19 Vaccine (4 - season) 2023 03/21/2021, 08/31/2020, 08/09/2020 Influenza [...] Diagnosis Comments MG MAMMO DIGITAL DIAGNOSTIC W SPENCER RIGHT Routine 03/30/2024 9:58 AM EST Abnormal mammogram HPV Routine 05/13/2022 PAP SMEAR Routine 05/13/2022 HEPATITIS C SCREENING Routine 10/03/2013 HIV SCREENING Routine 10/03/2013 from Last 3 Months or Most Recently Relevant to Health Maintenance Results * MG Mammo Digital Diagnostic w Spencer Right (03/30/2024 9:58 AM EST) Anatomical Region [...] Signed Date: 03/30/2024 12:03 ET Workstation ID: [id number] Transcribed By: Self Edit Transcribed Date: 03/30/2024 [...] Signed Date: 03/30/2024 12:03 ET Workstation ID: [id number] Transcribed By: Self Edit Transcribed Date: 03/30/2024 11:23 ET Sabrina Tidwell MD IMG BI PROCEDURES Final Result * Cervical Cancer Screening: HPV (05/13/2022) [facility] Cervical Cancer Screening: HPV negative, abstracted Historical Provider HEALTH MAINTENANCE Final Result * Pap smear (05/13/2022) 05/13/2022 Narrative HISTORICAL TESTING LAB RESULTING AGENCY - 05/24/2022 7:31 AM EST [id number] THINPREP PAP, IMAGED: NEGATIVE FOR SQUAMOUS INTRAEPITHELIAL LESION AND MALIGNANCY . GONZALO VALDEZ(ASCP) (CASE ELECTRONICALLY SIGNED 05 22 2022) RESULT OF APTIMA HIGH RISK HPV ASSAY: HIGH RISK HPV: NEGATIVE (SEROTYPES 16,18,31,33,35,39,45,51,52,56,58,59,66,68) COMPLETED ON 2022-05-14 ADEQUACY: SATISFACTORY ENDOCERVICAL/TRANSFORMATION ZONE COMPONENT PRESENT. SOURCE: THINPREP PAP HPV ANY DX: REFLEX 16 AND 18, CERVICAL, IMAGED CLINICAL INFORMATION: HPV ANY DIAGNOSIS. HORMONES, PAP HX NEG, HPV NEG, 11/24/17, [Z01.419] Susan Flanagan DO LAB CYTOLOGY ORDERABLES Final Result HISTORICAL TESTING LAB RESULTING AGENCY * HIV Screening (10/03/2013) [facility] HIV Screening abstracted Historical Provider HEALTH MAINTENANCE Final Result * Hepatitis C Screening (10/03/2013) [facility] Hepatitis C Screening abstracted Historical Provider HEALTH MAINTENANCE Final Result from Last 3 Months or Most Recently Relevant to Health Maintenance Insurance CLARIBEL FERRARO [id number] [employer] Care Teams Activity Director Relationship Specialty Start Date End Date Tita Weber NP [address] [place] [address] PCP - General Family Medicine 03/13/24
== END 2024-10-11 15:18 | disposition home or self-care (01) ==
LOC: HO.HGI 14:46
PROVIDERS: PCP Nurse Practitioner Family; Visit Provider Nurse Practitioner
DX: Z01.818 Encounter for other preprocedural examination (principal); Z12.11 Encounter for screening for malignant neoplasm of colon
CPT/HCPCS: S0285

== ENCOUNTER 2024-11-20 15:14 | Outpatient (AMB) | payer OTHER, SELFPAY ==
--- NOTE | 2024-11-20 15:18 | A.OFFVIS_ITS ---
Vital Signs 11/20/24 15:19 Height 5 ft 2 in Weight 129 lb 2 oz BMI 23.6 BP 120/76 Blood Pressure Location Lt brachial Position Sitting Pulse 88 Pulse Source Pulse Oximeter Pulse Oximetry (%) 99 Oxygen Delivery Method Room Air Intake Visit Reasons: Pneumonia/[facility] DC Follow Up Allergies No Known Allergies Allergy (Verified 11/20/24 15:21) HPI HPI Pneumonia/[facility] DC Follow Up: Details: Kayla is a pleasant 49 year old, never smoker, with no significant past medical history. She was referred by [facility] after recently being treated for pneumonia. She was admitted to [facility] 09/26-09/28 found to have Chlamydia Pneumoniae and chest CT revealed pleural-based consolidation with surrounding groundglass and an additional halo of consolidation in the left lower lobe measuring 5.1 x 6.0 x 3.7 cm in aggregate with recommendations for repeat CT outpatient. She was treated with Ceftriaxone 1 g IV, azithromycin 500 mg IV, ketorolac 15 mg IV NS 2,677 ml bolus. Solu-Medrol 60 mg IV, ultimately discharged on Azithromycin x 7 days. After discharge cough persisted and was seen by PCP on 10/16 given guafensein and wesley wilder with improvements. She continues with intemrittent dry cough triggered by laughing and prolonged talking with intermittent wheezing. Denies dyspnea. Feels symptoms are 75-80% improved at this time. She denies h/o asthma/copd, endorses second hand smoke. No h/o recurrent respiratory infections however reports significant symptoms with COVID in 2021 requiring treatment through the outpatient COVID clinic through [facility]. She denies occupational exposures. She denies any pertinent family history. [facility] Medical History Pneumonia Atypical pneumonia Sepsis Acute hypokalemia Anxiety and depression Perimenopausal Chronic headache Surgical History Hx of tonsillectomy H/O dilation and curettage History of bunionectomy Family History Father Dementia Malignant neoplasm of brain Malignant neoplasm of lung Maternal Grandmother Malignant neoplasm of breast Social History Household Members: Family Housing: House Do you presently have visiting nurse or other home services: No Patient Tobacco Use Status: Never used Tobacco service: No Review of Systems Const Denies chills, Denies excessive sweating, Denies fever(s), Denies headache(s) and Denies night sweats Eyes Denies dry eyes, Denies irritation and Denies itchy eyes ENT Reports Normal hearing present, Denies headache(s), Denies nasal congestion, Denies nasal discharge, Denies post nasal drip and Denies sore throat Card Denies chest pain, Denies chest pain at rest, Denies chest pain with activity, Denies claudication, Denies leg edema, Denies dyspnea, Denies dyspnea on exertion, Denies orthopnea and Denies paroxysmal nocturnal dyspnea Resp Denies chest congestion, Denies excessive phlegm production, Denies pain on inspiration, Denies pain with cough, Denies dyspnea, Denies dyspnea on exertion and Denies stridor Musc Denies myalgias Neuro Reports Normal hearing present and Denies headache(s) Endo Denies excessive sweating Ravi/Lymph Denies lymphadenopathy Aller/Immun Denies itchy eyes and Denies seasonal rhinorrhea Physical Exam Vital Signs: Last Vital Signs Pulse 88 11/20/24 15:19 BP 120/76 11/20/24 15:19 Pulse Ox 99 11/20/24 15:19 Oxygen Delivery Method Room Air 11/20/24 15:19 BMI result Body Mass Index 23.6 Const General: cooperative, healthy appearing, comfortable, no acute distress, well developed and alert Orientation/consciousness: patient oriented x3 Limitations: no limitations HEENT Head: Yes normal to inspection, Yes normocephalic and Yes atraumatic Ears: hearing grossly normal bilaterally and external ears normal Eyes General: appearance normal, both eyes and all related structures Eyelids: Yes eyelids normal Sclerae: sclerae normal EOM: EOMs intact bilaterally Neck Neck: Yes normal visual inspection and Yes no lymphadenopathy Lymphatic: no lymphadenopathy noted Chest Chest palpation & inspection: normal inspection of the chest Resp Effort & Inspection: normal respiratory effort, able to speak in complete sentences, no audible wheezes, no cough, no stridor, not tachypneic, no tripod positioning and no use of accessory muscles Auscultation: clear to auscultation bilaterally Cardio Jugular venous distension: no JVD Rate: regular rate Rhythm: regular rhythm Skin Other: warm, dry General skin exam: no rashes or lesions noted Neuro General: patient oriented x3 Cranial nerves: Yes Normal hearing present Cognition (Neuro): normal cognition Gait exam (Neuro): Normal gait present Extrem General: Yes normal to inspection, Yes capillary refill normal, Yes no clubbing, cyanosis or edema and Yes no pedal edema Psych Appearance: grossly normal and well kempt Speech and movement: Normal speech and movement present and Clear speech present Affect: normal affect Attitude: cooperative Thought process: Normal thought process present Thought content: Normal thought content present Insight: Good insight present (Psych) Judgement: Good judgement present (Psych) Results Reviewed Results Reviewed: [address] [address] [address] Scan Report Signed Patient: Kayla Chen MR#: [id number] : 1975 Acct:[id number] Age/Sex: 49 / F ADM Date: 09/26/24 Loc: .ED Attending Dr: Ordering Physician: Kimberley Starr DO Date of Service: 09/26/24 Procedure(s): CT chest wo IV con Accession Number(s): [id number] cc: Kimberley Starr DO; Physician,Unknown ~ Report Number: [id number]: Total DLP = 0.00 mGy-cm EXAMINATION: CT CHEST WITHOUT IV CONTRAST INDICATION: abnormal CXR, cough, fevers COMPARISON: There are no prior studies available for comparison. TECHNIQUE: Helical CT scan of the chest was performed without intravenous contrast. Coronal and sagittal reformatted images were generated and reviewed. This CT exam was performed with one or more of the following dose reduction techniques: automated exposure control, adjustment of the mA and/or kV according to patient size, use of iterative reconstruction technique. DLP: 201 mGy-cm CHEST: THYROID: The thyroid is unremarkable. LUNGS: In the left lower lobe, there is a pleural-based area of consolidation with surrounding area of mild groundglass opacity and a further surrounding halo of consolidation. This area measures approximately 5.1 x 6.0 x 3.7 cm in size. The remainder of the lungs are clear. There is elevation of the left hemidiaphragm. MEDIASTINUM: There is a 9 mm superior mediastinal lymph node. GEORGE: Evaluation of the hilar regions is limited by lack of intravenous contrast material. CARDIOVASCULATURE: The heart is normal in size. There is no pericardial effusion. The thoracic aorta is normal in caliber. DEGREE OF CORONARY CALCIFICATION: none PLEURA: There is no pleural effusion. No pneumothorax. MAIN AIRWAYS: The mainstem bronchi and proximal branches are patent. AXILLA: There is no axillary lymphadenopathy. BONES AND SOFT TISSUES: There are rounded masses in both breasts measuring 1.5 x 1.1 cm on the right and 1.5 x 1.3 cm on the left. The bones are intact. UPPER ABDOMEN: The visualized portions of the liver, spleen, and adrenals have an unremarkable unenhanced appearance. CT/CT chest wo IV con IMPRESSION: 1. Pleural-based consolidation with surrounding groundglass and an additional halo of consolidation in the left lower lobe measuring 5.1 x 6.0 x 3.7 cm in aggregate. The appearance is not typical for bacterial pneumonia. Differential diagnostic considerations include cryptogenic organizing pneumonia, fungal or other infectious etiology, granulomatosis with polyangiitis sarcoidosis, and neoplasm. Clinical correlation is recommended. Tissue sampling may be necessary. 2. Bilateral breast nodules as described for which mammography and ultrasound are recommended. Electronically signed by: Justin Sylvester MD 09/26/2024 12:43 PM EDT Dictated By: Justin Sylvester MD Signed By: <Electronically signed by Justin Sylvester MD in OV> 09/26/24 1243 DD/ 1039 Assessment & Plan Assessment & Plan (1) History of recent pneumonia: Code(s): Z87.01 - Personal history of pneumonia (recurrent) Category: Medical (2) Abnormal chest CT: Code(s): R93.89 - Abnormal findings on diagnostic imaging of other specified body st ructures Category: Medical Plan Kayla presents for pulmonary evaluation after diagnosis of pneumonia 09/26, cultures + Chlamydia Pneumoniae and treated with IV abx discharged on oral azithromycin x [address] revealed pleural-based consolidation with surrounding groundglass and an additional halo of consolidation in the left lower lobe measuring 5.1 x 6.0 x 3.7 cm. Will repeat chest CT to assess for resolution. Given patient has no past medical history will send for labs to assess for underlying immunodeficiencies. At this time, she reports significant improvement in symptoms will continue to monitor and call if symptoms change. All questions were answered and patient is in agreement of plan. Will follow up to review results or sooner if needed. Orders: Orders Immunoglobulin G Subclasses 11/26/24 Z87.01 - Personal history of pneumonia (recurrent) Immunoglobulins,IgG IgA IgM 11/26/24 Z87.01 - Personal history of pneumonia (recurrent) CT chest wo IV con 11/26/24 Z87. - Personal history of pneumonia (recurrent) Coding Level of Care Code New Pt Level 4 (33197) Diagnoses History of recent pneumonia Z87.[address] R93.89
[2024-11-20 15:19] VITALS: BP 120/76; PULSE 88; O2SAT 99; BMI 23.6
--- OUTSIDE RECORDS SUMMARY | 2024-11-20 15:44 | XMS_ITS | Clinical Summary ---
Author Organization [facility] [address] [place] [address] [place] [address] Phone Care Team Providers Care Leisure Travel Agent Name Role Phone Tita Weber TREASURY MANAGEMENT SALES CONSULTANT Primary Care Provider +1- [phone] Allergies Active Allergy Reactions Criticality Noted Date [...] Site/Laterality Comments OTHER SURGICAL HISTORY 02/2004 PROCEDURE: DE DILATION & CURETTAGE DX&/THER NONOBSTETRIC TONSILLECTOMY 1997 [...] for your loved ones. For example, children's ministry director or elderly care for an older adult? 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 Ovidio davila Delivery Location:[facility] Last Filed Vital Signs Vital Sign Reading [...] of 2) 2023 COVID-19 Vaccine (4 - 2023- season) 2023 03/21/2021, 08/31/2020, 08/09/2020 Influenza Vaccine (#1) 2024 , 01/10/2020, 01/10/2020, Additional history exists Social Influencers of Health Screening 06/19/2025 06/19/2024 Breast Cancer Screening 03/30/2026 03/30/20, 03/13/2024, 01/26/2023, Additional history exists Cervical Cancer Screening: HPV 05/13/2027 05/13/2022 Cervical Cancer Screening: Pap Smear 05/13/2027 05/13/2022, 05/13/2022, 05/13/2022, Additional history exists DTaP,Tdap,and Td Vaccines (3 - Td or Tdap) 07/29/2031 07/28/2021, 06/04/2010 HIV Screening Completed 10/03/2013 Hepatitis C Screening Completed 10/03/2013 Depression Screening Completed 06/19/2024 HIB Vaccines Aged Out No longer eligi [...] Signed Date: 03/30/2024 12:03 ET Workstation ID: [id number] Transcribed By: Self Edit Transcribed Date: 03/30/2024 [...] Signed Date: 03/30/2024 12:03 ET Workstation ID: [id number] Transcribed By: Self Edit Transcribed Date: 03/30/2024 11:23 ET us Sabrina Tidwell MD IMG BI PROCEDURES Final Result * Hm Cervical Cancer Screening: HPV (05/13/2022) [facility] Cervical Cancer Screening: HPV negative, abstracted Historical Provider HEALTH MAINTENANCE Final Result * Pap smear (05/13/2022) 05/13/2022 Narrative HISTORICAL TESTING LAB RESULTING AGENCY - 05/24/2022 7:31 AM EST [id number] THINPREP PAP, IMAGED: NEGATIVE FOR SQUAMOUS INTRAEPITHELIAL LESION AND MALIGNANCY . TITA PARK , GONZALO(ASCP) (CASE ELECTRONICALLY SIGNED 05 22 2022) RESULT [...] LAB RESULTING AGENCY * HIV Screening (10/03/2013) [facility] HIV Screening abstracted Historical Provider HEALTH MAINTENANCE Final Result * Hepatitis C Screening (10/03/2013) [facility] Hepatitis C Screening abstracted Historical Provider HEALTH MAINTENANCE Final Result from Last 3 Months or Most Recently Relevant to Health Maintenance Insurance [place]AR[place] [id number] [place] [address] Care Teams Leisure Travel Agent Relationship Specialty Start Date End Date Tita Weber NP [address] [place] [address] PCP - General Family Medicine 03/13/24
--- OUTSIDE RECORDS SUMMARY | 2024-11-20 15:45 | XMS_ITS | Patient Health Record ---
Author Organization [facility] Address [address] [facility] [place] [address] Care Team Providers Care Echo Vascular Technologist Name Role Phone Tita Weber Primary Care Provider Hudson Reddy Unavailable [phone] Allergies No Known Allergies Reason For Referral No Information Medications Medication SIG (Take, Route, Frequency, Duration) Notes Start Date End Date Status Sleep Aid 25 MG 1 tablet at bedtime as needed Orally Once a day; Duration: 30 day(s) Unknown Flonase 50 MCG/ACT 1 spray in each nost ril Nasally Once a day; Duration: 30 day(s) Active Amitriptyline HCl 10 MG 1 tablet at bedt matt Orally Once a day; Duration: 30 day(s) Active Lexapro 10 MG 1 tablet Orally Once a day; Duration: 30 day(s) Active Mivacron Active Social History Tobacco Use: Social History Observation Description Date Details (start date - stop date) Never Smoker NA - NA Tobacco Use/Smoking Question Answer Notes Are you a: nonsmoker Additional Findings: Tobacco Non-User Current no n-smoker Alcohol Screen Question Answer Notes Did you have a drink contain ing alcohol in the past year? Yes How often did you have a dri nk containing alcohol in the past year? Monthly or less (1 point) Points 1 Interpretation Negative Tobacco use other than smoking: Question Answer Notes Are you an other tobacco user? No Problems Problem Type SNOMED Code ICD Code Onset Dates Problem Status W/U Status Risk Notes Problem Acquired hallux valgus (21595268) Hallux valgus (acquired), left foot (M20.12) Active confirmed Problem Localized, primary osteoarthritis of the ankle and/or foot (326225493) Primary osteoarthritis , right ankle and foot (M19.071) Active confirmed Problem Acquired hallux valgus (09213658) Hallux valgus (acquired), right foot (M20.11) Active confirmed Problem Acquired hammer toe of left foot (4175572732317268) Other hammer toe(s) (acquired), left foot (M20.42) Active confirmed Problem Right metatarsus adductus (disorder) (65757632741018650 ) 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 Plan Of Treatment Pending Test Test Name Order Date X ray : Foot, left 2V 08/22/2017 X ray : Foot, right 2V 08/22/2017 X ray : Foot, left 3V 02/28/2023 X ray : Foot, left 3V 01/03/2023 [id number], Toes 01/03/2023 Insurance Providers Payer Name Payer Address Payer Phone Subscriber Number Group Number Insured Name Patient Relationship to Insured Coverage Start Date Coverage End Date Aetna [address] [place] [address] [id number] Kayla Fallon Self - patient is the insured Medical (General) History Medical History History ICD Code gestational diabetes Chicken pox Anxiety Broken bones covid-19 Joint implants/screws Surgical History Surgery Date(Month/Year) dilatation and curettage 01/2004 tonsillectomy 12/1997 bunionectomy 2018
== END 2024-11-20 16:03 | disposition home or self-care (01) ==
LOC: HO.HPSW 15:15
PROVIDERS: PCP Nurse Practitioner Family; Visit Provider Nurse Practitioner Family
DX: Z87.01 Personal history of pneumonia (recurrent) (principal); R93.89 Abnormal findings on diagnostic imaging of other specified body structures
CPT/HCPCS: 99204

== ENCOUNTER 2024-11-30 11:15 | Outpatient (REF) | payer OTHER, SELFPAY ==
--- OUTSIDE RECORDS SUMMARY | 2024-11-30 11:21 | XMS_ITS | Clinical Summary ---
Author Organization [facility] [address] [place] [address] Address [address] [place] [address] Phone Care Team Providers Care Generator Technician Name Role Phone Tita Weber ACCOUNT LIAISON Primary Care Provider +1- [phone] Allergies Active Allergy Reactions Criticality Noted Date [...] Site/Laterality Comments OTHER SURGICAL HISTORY 02/2004 PROCEDURE: IN DILATION & CURETTAGE DX&/THER NONOBSTETRIC TONSILLECTOMY 1997 [...] care for your loved ones. For example, child attendant or elderly care for an older adult? 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 Ovidio davila Delivery Location:[facility] Last Filed Vital Signs Vital Sign [...] Signed Date: 03/30/2024 12:03 ET Workstation ID: [id number] Transcribed By: Self Edit Transcribed Date: 03/30/2024 [...] Signed Date: 03/30/2024 12:03 ET Workstation ID: [id number] Transcribed By: Self Edit Transcribed Date: 03/30/2024 11:23 ET us Sabrina Tidwell MD IMG BI PROCEDURES Final Result * Hm Cervical Cancer Screening: HPV (05/13/2022) [facility] Cervical Cancer Screening: HPV negative, abstracted Historical Provider HEALTH MAINTENANCE Final Result * Pap smear (05/13/2022) 05/13/2022 Narrative HISTORICAL TESTING LAB RESULTING AGENCY - 05/24/2022 7:31 AM EST [id number] THINPREP PAP, IMAGED: NEGATIVE FOR SQUAMOUS INTRAEPITHELIAL [...] LAB RESULTING AGENCY * HIV Screening (10/03/2013) [facility] HIV Screening abstracted Historical Provider HEALTH MAINTENANCE Final Result * Hepatitis C Screening (10/03/2013) [facility] Hepatitis C Screening abstracted Historical Provider HEALTH MAINTENANCE Final Result from Last 3 Months or Most Recently Relevant to Health Maintenance Insurance [place]ERRAR[place] [id number] A[employer] Care Teams Generator Technician Relationship Specialty Start Date End Date Tita Weber NP [address] [place] [address] PCP - General Family Medicine 03/13/24
--- OUTSIDE RECORDS SUMMARY | 2024-11-30 11:22 | XMS_ITS | Patient Health Record ---
Author Organization [facility] Address [address] [facility] [place] [address] Care Team Providers Care Advertising Project Manager Name Role Phone Tita Weber Primary Care Provider Hudson Reddy Unavailable [phone] Allergies No Known Allergies Reason For Referral [...] Status Risk Notes Problem Acquired hallux valgus (15911970) Hallux valgus (acquired), left foot (M20.12) Active confirmed Problem Localized, primary osteoarthritis of the ankle and/or foot (369254783) Primary osteoarthritis , right ankle and foot (M19.071) Active confirmed Problem Acquired hallux valgus (72324288) Hallux valgus (acquired), right foot (M20.11) Active confirmed Problem Other hammer toe(s) (acquired), left foot (M20.42) Active confirmed Problem Right metatarsus adductus (disorder) (03330273046584388 ) 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 Plan Of Treatment Pending Test Test Name Order Date X ray : Foot, left 2V 08/22/2017 X ray : Foot, right 2V 08/22/2017 X ray : Foot, left 3V 02/28/2023 X ray : Foot, left 3V 01/03/2023 [id number], Toes 01/03/2023 Insurance Providers Payer Name Payer Address Payer Phone Subscriber Number Group Number Insured Name Patient Relationship to Insured Coverage Start Date Coverage End Date Aetna [address] [place] [address] [id number] Kayla Fallon Self - patient is the insured Medical (General) History Medical History History ICD Code gestational diabetes Chicken pox Anxiety Broken bones covid-19 Joint implants/screws Surgical History Surgery Date(Month/Year) dilatation and curettage 01/2004 tonsillectomy 12/1997 bunionectomy 2018
[2024-12-04 11:42] LABS: Immunoglobulin G Subclass 1 425 mg/dL (382-929); Immunoglobulin G Subclass 2 450 mg/dL (241-700); Immunoglobulin G Subclass 3 39 mg/dL (22-178); Immunoglobulin G Subclass 4 81.0 mg/dL (4-86); Immunoglobulin G Total 940 mg/dL (600-1640)
== END 2024-11-30 11:16 | disposition home or self-care (01) ==
LOC: HO.HMGCLDS 11:15
PROVIDERS: PCP Student in an Organized Health Care Education/Training Program; Visit Provider Nurse Practitioner Family
DX: Z01.84 Encounter for antibody response examination (principal); Z87.01 Personal history of pneumonia (recurrent)
CPT/HCPCS: 36415; 82784

== ENCOUNTER 2024-12-26 11:05 | Outpatient (REF) | payer OTHER, SELFPAY ==
--- NOTE | ~2024-12-26 | CT_ITS ---
CLINICAL HISTORY: Z87.01 - Personal history of pneumonia (recurrent) CT chest without contrast Comparison: 09/26/2024 Findings: The heart is normal size. The visualized thyroid and mediastinum are unremarkable. The lungs are clear. The visualized upper abdomen is unremarkable. The bones are intact. IMPRESSION: 1. Unremarkable chest CT. This document has been electronically signed by: Herman Dhaliwal MD on 12/31/2024 08:58:53
--- OUTSIDE RECORDS SUMMARY | 2024-12-26 14:09 | XMS_ITS | Patient Health Record ---
Author Organization [facility] Address [address] [facility] [place] [address] Care Team Providers Care Bookbinding Machine Operator Name Role Phone Tita Weber Primary Care Provider Hudson Reddy Unavailable [phone] Allergies No Known Allergies Reason For Referral [...] Status Risk Notes Problem Acquired hallux valgus (24289574) Hallux valgus (acquired), left foot (M20.12) Active confirmed Problem Localized, primary osteoarthritis of the ankle and/or foot (652088165) Primary osteoarthritis , right ankle and foot (M19.071) Active confirmed Problem Acquired hallux valgus (68440608) Hallux valgus (acquired), right foot (M20.11) Active confirmed Problem Acquired hammer toe of left foot (1112829406730237) Other hammer toe(s) (acquired), left foot (M20.42) Active confirmed Problem Right metatarsus adductus (disorder) (74411401266949850 ) 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 Plan Of Treatment Pending Test Test Name Order Date X ray : Foot, left 2V 08/22/2017 X ray : Foot, right 2V 08/22/2017 X ray : Foot, left 3V 02/28/2023 X ray : Foot, left 3V 01/03/2023 [id number], Toes 01/03/2023 Insurance Providers Payer Name Payer Address Payer Phone Subscriber Number Group Number Insured Name Patient Relationship to Insured Coverage Start Date Coverage End Date Aet[employer] [address] [place] [address] [id number] Kayla Fallon Self - patient is the insured Medical (General) History Medical History History ICD Code gestational diabetes Chicken pox Anxiety Broken bones covid-19 Joint implants/screws Surgical History Surgery Date(Month/Year) dilatation and curettage 01/2004 tonsillectomy 12/1997 bunionectomy 2018
--- OUTSIDE RECORDS SUMMARY | 2024-12-26 14:09 | XMS_ITS | Clinical Summary ---
Author Organization [facility] [address] [place] [address] Address [address] [facility] [place] [address] Phone Care Team Providers Care Convention Worker Name Role Phone Ttia Weebr SENIOR JAVA DEVELOPER Primary Care Provider +1- [phone] Allergies Active Allergy Reactions Criticality Noted Date [...] Site/Laterality Comments OTHER SURGICAL HISTORY 02/2004 PROCEDURE: [place] DILATION & CURETTAGE DX&/THER NONOBSTETRIC TONSILLECTOMY 1997 [...] care for your loved ones. For example, childcare teacher or elderly care for an older adult? 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 Para Term AB IAB SAB Ectopic Multiple Livin g Live Births 2 1 1 0 0 0 1 1 Date Outcome GA Total Labor Labor/2nd/3rd Weight Sex Type Anes PTL Jacqui A1 A5 Name Clin 2003 2005 Term 40w 0d 2580 g (91 oz) M Vag-S pont Livin g Jair davila Delivery Location:[facility] Last Filed [...] of 2) 2023 COVID-19 Vaccine (4 - 2024- season) 2024 03/21/2021, 08/31/2020, 08/09/2020 Influenza Vaccine (#1) 2024 [...] Signed Date: 03/30/2024 12:03 ET Workstation ID: [id number] Transcribed By: Self Edit Transcribed Date: 03/30/2024 [...] Signed Date: 03/30/2024 12:03 ET Workstation ID: [id number] Transcribed By: Self Edit Transcribed Date: 03/30/2024 11:23 ET us Sabrina Tidwell MD IMG BI PROCEDURES Final Result * Cervical Cancer Screening: HPV (05/13/2022) [facility] Cervical Cancer Screening: HPV negative, abstracted Historical Provider HEALTH MAINTENANCE Final Result * Pap smear (05/13/2022) 05/13/2022 Narrative HISTORICAL TESTING LAB RESULTING AGENCY - 05/24/2022 7:31 AM EST [id number] THINPREP PAP, IMAGED: NEGATIVE FOR SQUAMOUS INTRAEPITHELIAL LESION AND MALIGNANCY . TITA PARK , CT(ASCP) (CASE ELECTRONICALLY SIGNED 05 [...] LAB RESULTING AGENCY * HIV Screening (10/03/2013) Pathologist [facility] HIV Screening abstracted Historical Provider HEALTH MAINTENANCE Final Result * Hepatitis C Screening (10/03/2013) Pathologist [facility] Hepatitis C Screening abstracted Historical Provider HEALTH MAINTENANCE Final Result from Last 3 Months or Most Recently Relevant to Health Maintenance Insurance [place] [id number] [employer] Care Teams Convention Worker Relationship Specialty Start Date End Date Tita Weber NP [facility] [place] [address] PCP - General Family Medicine 03/13/24
== END 2024-12-26 11:06 | disposition home or self-care (01) ==
LOC: HO.CT 11:05
PROVIDERS: PCP Student in an Organized Health Care Education/Training Program; Visit Provider Nurse Practitioner Family
DX: Z87.01 Personal history of pneumonia (recurrent) (principal)
CPT/HCPCS: 71250

== ENCOUNTER → 2024-12-26 11:07 | Outpatient (BNV) | payer OTHER, SELFPAY | PROVIDERS: PCP Student in an Organized Health Care Education/Training Program; Visit Provider Specialist | DX: Z87.01 Personal history of pneumonia (recurrent) (principal) | CPT/HCPCS: 71250 ==

== ENCOUNTER 2025-01-09 15:51 | Outpatient (AMB) | payer OTHER, SELFPAY ==
[2025-01-09 15:52] VITALS: BP 110/54; PULSE 99; O2SAT 98; BMI 23.1
--- NOTE | 2025-01-09 15:52 | A.OFFVIS_ITS ---
Vital Signs 01/09/25 15:52 Height 5 ft 2 in Weight 126 lb 6 oz BMI 23.1 BP 110/54 L Blood Pressure Location Rt brachial Position Sitting Pulse 99 Pulse Source Pulse Oximeter Pulse Oximetry (%) 98 Oxygen Delivery Method Room Air Intake Visit Reasons: Pneumonia Allergies No Known Allergies Allergy (Verified 01/09/25 15:58) HPI HPI Pneumonia: Details: Kayla is a pleasant 49 year old, never smoker, with no significant past medical history. She was initially referred by [facility] after recently being treated for pneumonia. She was admitted to [facility] 09/26-09/28 found to have Chlamydia Pneumoniae and chest CT revealed pleural-based consolidation with surrounding groundglass and an additional halo of consolidation in the left lower lobe measuring 5.1 x 6.0 x 3.7 cm in aggregate with recommendations for repeat CT outpatient. She was treated with Ceftriaxone 1 g IV, azithromycin 500 mg IV, ketorolac 15 mg IV NS 2,677 ml bolus. Solu-Medrol 60 mg IV, ultimately discharged on Azithromycin x 7 days. After discharge cough persisted and was seen by PCP on 10/16 given guafensein and wesley wilder with improvements. Since last visit patient reports near resolution of symptoms however does notice a dry cough developing after a prolonged talking. She denies any dyspnea, wheezing or chest tightness. Today she presents to review repeat chest CT. She denies any visits to urgent care hospitalizations related to respiratory distress since last visit. [facility] Medical History Pneumonia Atypical pneumonia Sepsis Acute hypokalemia Anxiety and depression Perimenopausal Chronic headache Surgical History Hx of tonsillectomy H/O dilation and curettage History of bunionectomy Family History Father Dementia Malignant neoplasm of brain Malignant neoplasm of lung Maternal Grandmother Malignant neoplasm of breast Social History Household Members: Family Housing: House Do you presently have visiting nurse or other home services: No Patient Tobacco Use Status: Never used Tobacco service: No Review of Systems Const Denies chills, Denies excessive sweating, Denies fever(s), Denies headache(s) and Denies night sweats Eyes Denies dry eyes, Denies irritation and Denies itchy eyes ENT Reports Normal hearing present, Denies headache(s), Denies nasal congestion, Denies nasal discharge, Denies post nasal drip and Denies sore throat Card Denies chest pain, Denies chest pain at rest, Denies chest pain with activity, Denies claudication, Denies leg edema, Denies dyspnea, Denies dyspnea on exertion, Denies orthopnea and Denies paroxysmal nocturnal dyspnea Resp Denies chest congestion, Denies excessive phlegm production, Denies pain on inspiration, Denies pain with cough, Denies dyspnea, Denies dyspnea on exertion and Denies stridor Musc Denies myalgias Neuro Reports Normal hearing present and Denies headache(s) Endo Denies excessive sweating Ravi/Lymph Denies lymphadenopathy Aller/Immun Denies itchy eyes and Denies seasonal rhinorrhea Physical Exam Vital Signs: Last Vital Signs Pulse 99 01/09/25 15:52 BP 110/54 L 01/09/25 15:52 Pulse Ox 98 01/09/25 15:52 Oxygen Delivery Method Room Air 01/09/25 15:52 BMI result Body Mass Index 23.1 Const General: cooperative, healthy appearing, comfortable, no acute distress, well developed and alert Orientation/consciousness: patient oriented x3 Limitations: no limitations HEENT Head: Yes normal to inspection, Yes normocephalic and Yes atraumatic Ears: hearing grossly normal bilaterally and external ears normal Eyes General: appearance normal, both eyes and all related structures Eyelids: Yes eyelids normal Sclerae: sclerae normal EOM: EOMs intact bilaterally Neck Neck: Yes normal visual inspection and Yes no lymphadenopathy Lymphatic: no lymphadenopathy noted Chest Chest palpation & inspection: normal inspection of the chest Resp Effort & Inspection: normal respiratory effort, able to speak in complete sentences, no audible wheezes, no cough, no stridor, not tachypneic, no tripod positioning and no use of accessory muscles Auscultation: clear to auscultation bilaterally Cardio Jugular venous distension: no JVD Rate: regular rate Rhythm: regular rhythm Skin Other: warm, dry General skin exam: no rashes or lesions noted Neuro General: patient oriented x3 Cranial nerves: Yes Normal hearing present Cognition (Neuro): normal cognition Gait exam (Neuro): Normal gait present Extrem General: Yes normal to inspection, Yes capillary refill normal, Yes no clubbing, cyanosis or edema and Yes no pedal edema Psych Appearance: grossly normal and well kempt Speech and movement: Normal speech and movement present and Clear speech present Affect: normal affect Attitude: cooperative Thought process: Normal thought process present Thought content: Normal thought content present Insight: Good insight present (Psych) Judgement: Good judgement present (Psych) Results Reviewed Results Reviewed: [address] [address] [address] Scan Report Signed Patient: Kayla Chen MR#: [id number] : 1975 Acct:[id number] Age/Sex: 49 / F ADM Date: 12/26/24 Loc: HO.CT Attending Dr: Gloria Garcia NP Ordering Physician: Gloria Garcia NP Date of Service: 12/26/24 Procedure(s): CT chest wo IV con Accession Number(s): [id number] cc: Sabrina Tidwell MD; Gloria Garcia NP~ Report Number: [id number]: Total DLP = 106.00 mGy-cm Reason for Exam: Z. - Personal history of pneumonia (recurrent) CLINICAL HISTORY: Z. - Personal history of pneumonia (recurrent) CT chest without contrast Comparison: 09/26/2024 Findings: The heart is normal size. The visualized thyroid and mediastinum are unremarkable. The lungs are clear. The visualized upper abdomen is unremarkable. The bones are intact. IMPRESSION: 1. Unremarkable chest CT. This document has been electronically signed by: Herman Dhaliwal MD on 12/31/2024 08:58:53 Assessment & Plan Assessment & Plan (1) History of recent pneumonia: Code(s): Z87.01 - Personal history of pneumonia (recurrent) Category: Medical (2) Abnormal chest CT: Code(s): R93.89 - Abnormal findings on diagnostic imaging of other specified body structures Category: Medical Plan Prior chest CT revealed pleural-based consolidation with surrounding groundglass and an additional halo of consolidation in the left lower lobe measuring 5.1 x 6.0 x 3.7 cm in repeat chest CT revealed complete resolution of prior pneumonia. At this time patient reports resolution of symptoms except for dry cough. Discussed sending for PFT to assess for obstructive defect such as asthma however patient declined. Her most bothersome symptom at this time is postnasal drip unresponsive to Flonase, will try ipratropium. She was also sent for labs to assess for underlying immunodeficiencies, slight elevation in IgE which could be related to prior infectious process. She is aware to call if symptoms change or if she is interested in pursuing PFT. All questions were answered and patient is in agreement of plan. Will follow up in 6 months or sooner if needed. Medications: New ipratropium bromide administer into each nostril 2 sprays intranasal BID 30 mL 3RF Coding Level of Care Code Est Pt Level 4 (73904) Diagnoses History of recent pneumonia Z87.[address] R93.89
--- OUTSIDE RECORDS SUMMARY | 2025-01-09 17:58 | XMS_ITS | Patient Health Record ---
Author Organization [facility] Address [address] [facility] [place] [address] Care Team Providers Care Rock Breaker Name Role Phone Tita Weber Primary Care Provider Hudson Reddy Unavailable [phone] Allergies No Known Allergies Reason For Referral [...] Status Risk Notes Problem Acquired hallux valgus (16685934) Hallux valgus (acquired), left foot (M20.12) Active confirmed Problem Localized, primary osteoarthritis of the ankle and/or foot (790960032) Primary osteoarthritis , right ankle and foot (M19.071) Active confirmed Problem Acquired hallux valgus (00461223) Hallux valgus (acquired), right foot (M20.11) Active confirmed Problem Acquired hammer toe of left foot (9438298392225702) Other hammer toe(s) (acquired), left foot (M20.42) Active confirmed Problem Right metatarsus adductus (disorder) (91115920219163765 ) 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 Plan Of Treatment Pending Test Test Name Order Date X ray : Foot, left 2V 08/22/2017 X ray : Foot, right 2V 08/22/2017 X ray : Foot, left 3V 02/28/2023 X ray : Foot, left 3V 01/03/2023 [id number], Toes 01/03/2023 Insurance Providers Payer Name Payer Address Payer Phone Subscriber Number Group Number Insured Name Patient Relationship to Insured Coverage Start Date Coverage End Date A[employer] [address] [place] [address] [id number] Kayla Fallon Self - patient is the insured Medical (General) History Medical History History ICD Code gestational diabetes Chicken pox Anxiety Broken bones covid-19 Joint implants/screws Surgical History Surgery Date(Month/Year) dilatation and curettage 01/2004 tonsillectomy 12/1997 bunionectomy 2018
--- OUTSIDE RECORDS SUMMARY | 2025-01-09 17:58 | XMS_ITS | Clinical Summary ---
Author Organization [facility] [address] [place] [address] Address [address] [facility] [place] [address] Phone Care Team Providers Care Pipe [address] Service Name Role Phone Tita Weber HOT METAL CHARGER Primary Care Provider [phone]- [phone] Allergies Active Allergy Reactions Criticality Noted Date [...] Site/Laterality Comments OTHER SURGICAL HISTORY 02/2004 PROCEDURE: [place] DILATION & CURETTAGE DX&/THER NONOBSTETRIC TONSILLECTOMY 1997 [...] for your loved ones. For example, child center assistant or elderly care for an older adult? 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 Not on [...] Vag-S pont Livin g Jair davila Delivery Location:[facility] Last Filed Vital Signs Vital [...] Signed Date: 03/30/2024 12:03 ET Workstation ID: [id number] Transcribed By: Self Edit Transcribed Date: 03/30/2024 [...] Signed Date: 03/30/2024 12:03 ET Workstation ID: [id number] Transcribed By: Self Edit Transcribed Date: 03/30/2024 11:23 ET us Sabrina Tidwell MD IMG BI PROCEDURES Final Result * Cervical Cancer Screening: HPV (05/13/2022) Pathologist [facility] Cervical Cancer Screening: HPV negative, abstracted Historical Provider HEALTH MAINTENANCE Final Result * Pap smear (05/13/2022) 05/13/2022 Narrative HISTORICAL TESTING LAB RESULTING AGENCY - 05/24/2022 7:31 AM EST [id number] THINPREP PAP, IMAGED: NEGATIVE FOR SQUAMOUS INTRAEPITHELIAL [...] RESULTING AGENCY * HIV Screening (10/03/2013) Pathologist [facility] HIV Screening abstracted Historical Provider HEALTH MAINTENANCE Final Result * Hepatitis C Screening (10/03/2013) Pathologist [facility] Hepatitis C Screening abstracted Historical Provider HEALTH MAINTENANCE Final Result from Last 3 Months or Most Recently Relevant to Health Maintenance Insurance [place] [id number] [employer] Care Teams [address] Service Relationship Specialty Start Date End Date Tita Weber NP [facility] [place] [address] PCP - General Family Medicine 03/13/24
== END 2025-01-09 16:23 | disposition home or self-care (01) ==
LOC: HO.HPSW 15:51
PROVIDERS: PCP Nurse Practitioner Family; Visit Provider Nurse Practitioner Family
DX: Z87.01 Personal history of pneumonia (recurrent) (principal); R93.89 Abnormal findings on diagnostic imaging of other specified body structures
CPT/HCPCS: 99214

== ENCOUNTER 2025-03-19 08:49 | Day surgery (SDC) | payer OTHER, SELFPAY ==
--- OUTSIDE RECORDS SUMMARY | 2025-02-14 06:58 | XMS_ITS | Clinical Summary ---
Author Organization [facility] [address] [place] [address] Address [address] [facility] [address] Phone Care Team Providers Care Insurance Follow Up Representative Name Role Phone Tita Weber JOINER Primary Care Provider [phone]- [phone] Allergies Active Allergy Reactions Criticality Noted Date [...] Date Allergic rhinitis 06/20/2024 Anxiety 06/20/2024 Immunizations Immunization Administration Dates Next Due Influenza Quadravalent, MDCK , 0.5ml, preservative free (Flucelvax) 6mo and older 12/28/2018 Influenza trivalent, 0.5mL, preservative free (Fluarix; FluLaval; Fluzone) ages 6mo and older (Afluria) 3 years and older 01/05/2011 Surgical History Surgery Date Site/Laterality Comments OTHER SURGICAL HISTORY 02/2004 PROCEDURE: [place] DILATION & CURETTAGE DX&/THER NONOBSTETRIC TONSILLECTOMY 1997 [...] do you feel lonely or isolated from ose around you? Never 06/19/2024 Food Risk [...] Date Recorded What is your living situation? 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 Not on file Not on [...] Vag-S pont Livin g Jair davila Delivery Location:[facility] Last Filed [...] Health Maintenance Due Date Last Done Comments Colorectal Cancer Screening: Colonoscopy 1973 Hepatitis B Vaccines (1 of 3 - 19+ 3-dose series) 02/10/1992 Pneumococcal Vaccine: 50+ Years (2 of 2 [...] - Td or Tdap) 07/29/2031 07/28/2021, 06/04/2010 RSV Immunization Adult Patients (1 - 1-dose 75+ series) 02/10/2048 HIV Screening Completed 10/03/2013 Hepatitis C Screening [...] Signed Date: 03/30/2024 12:03 ET Workstation ID: [id number] Transcribed By: Self Edit Transcribed Date: 03/30/2024 [...] Signed Date: 03/30/2024 12:03 ET Workstation ID: [id number] Transcribed By: Self Edit Transcribed Date: 03/30/2024 11:23 ET Sabrina Tidwell MD IMG BI PROCEDURES Final Result * Cervical Cancer Screening: HPV (05/13/2022) [facility] Cervical Cancer Screening: HPV negative, abstracted Historical Provider HEALTH MAINTENANCE Final Result * Pap smear (05/13/2022) 05/13/2022 Narrative HISTORICAL TESTING LAB RESULTING AGENCY - 05/24/2022 7:31 AM EST [id number] THINPREP PAP, IMAGED: NEGATIVE FOR SQUAMOUS INTRAEPITHELIAL [...] Final Result * Hepatitis C Screening (10/03/2013) [facility] Hepatitis C Screening abstracted Historical Provider HEALTH MAINTENANCE Final Result from Last 3 Months or Most Recently Relevant to Health Maintenance Insurance [place] [id number] [employer] Care Teams Insurance Follow Up Representative Relationship Specialty Start Date End Date Tita Weber NP [address] [place] [address] PCP - General Family Medicine 03/13/24
--- OUTSIDE RECORDS SUMMARY | 2025-02-14 06:58 | XMS_ITS | Patient Health Record ---
Author Organization [facility] Address [address] [facility] [place] [address] Care Team Providers Care Factory Worker Name Role Phone Gus Tita Primary Care Provider [place] Unavailable [phone] Allergies No Known Allergies Reason For Referral [...] Status Risk Notes Problem Acquired hallux valgus (90504316) Hallux valgus (acquired), left foot (M20.12) Active confirmed Problem Localized, primary osteoarthritis of the ankle and/or foot (479419203) Primary osteoarthritis , right ankle and foot (M19.071) Active confirmed Problem Acquired hallux valgus (48363998) Hallux valgus (acquired), right foot (M20.11) Active confirmed Problem Acquired hammer toe of left foot (4186381250599138) Other hammer toe(s) (acquired), left foot (M20.42) Active confirmed Problem Right metatarsus adductus (disorder) (53813739592470422 ) 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 Plan Of Treatment Pending Test Test Name Order Date X ray : Foot, left 2V 08/22/2017 X ray : Foot, right 2V 08/22/2017 X ray : Foot, left 3V 02/28/2023 X ray : Foot, left 3V 01/03/2023 [id number], Toes 01/03/2023 Insurance Providers Payer Name Payer Address Payer Phone Subscriber Number Group Number Insured Name Patient Relationship to Insured Coverage Start Date Coverage End Date [employer] [address] [place] [address] [id number] Kayla Fallon Self - patient is the insured Medical (General) History Medical History History ICD Code gestational diabetes Chicken pox Anxiety Broken bones covid-19 Joint implants/screws Surgical History Surgery Date(Month/Year) dilatation and curettage 01/2004 tonsillectomy 12/1997 bunionectomy 2018
[2025-03-19 10:05] VITALS: BMI 23.1
[2025-03-19 10:15] VITALS: BP 163/64; PULSE 102; RESP 18; TEMP 36.7; O2SAT 98
[2025-03-19] MEDS: Lactated Ringers 1,000 ML 100 ML IVCONT (10:27)
[2025-03-19 10:30] VITALS: BP 158/65
--- NOTE | 2025-03-19 10:42 | MHC.SHP ---
Pre-Procedural Eval Section A - 24 Hr Update-Section A only Date of Service: 03/19/25 Section B - Complete if H&P > 30 days Chief Complaint: screening Relevant Family History (Specify if Yes): No Relevant Social History: None Present Medications: see Short Stay Collaborative assessment Medical History: Significant History (Pneumonia Atypical pneumonia Sepsis Acute hypokalemia Anxiety and depression Perimenopausal Chronic headache) History of Previous Operations: Relevant previous surgery/procedure and date(s) ( Hx of tonsillectomy H/O dilation and curettage History of bunionectomy) Allergies: Allergies Allergy/AdvReac Type Severity Reaction Status Date / Time No Known Allergies Allergy Verified 03/19/25 10:06 Review of Systems Sugical H&P ROS: Negative: Constitution, Cardiovascular, Respiratory, Neurological, Psychiatric, Hem-Onc, Allergic/Immunologic, Gastrointestinal, Genitourinary, Musculoskeletal, Integumentary, Endocrine and Eyes/Ears/Nose/Throat Exam Surgical H&P Exam: Normal: HEENT, Normal: Heart, Normal: Lungs, Normal: Extremities, Normal: Abdomen, Normal: Skin and Normal: Neurological Plan Diagnosis/Plan: Unchanged I have reviewed the history and physical and performed a pertinent physical examination on my patient. No changes have occurred unless specified. Time Spent With Patient Time: Total time managing care of this patient today ____ minutes.
--- NOTE | 2025-03-19 11:12 | P.CONAN_ITS ---
Documented by User: Sonja Pérez NP 03/13/25 14:20 HPI - Anesthesia Eval Consult details Narrative: 50yo F for Colonoscopy PMFSH Active Problems Active Problems: All Active Problems Abnormal chest CT (Acute) History of recent pneumonia (Acute) Pre-op examination (Acute) Chronic headache (Acute) Anxiety and depression (Acute) Allergic rhinitis (Acute) Breast nodule (Acute) Past Medical History Medical History (Updated 03/19/25 @ 10:17 by Vicky Baird RN) Menopause Pneumonia Atypical pneumonia Sepsis Acute hypokalemia Anxiety and depression Perimenopausal Chronic headache Family History Family History Father Dementia Malignant neoplasm of brain Malignant neoplasm of lung Maternal Grandmother Malignant neoplasm of breast Surgical History Surgical History Hx of tonsillectomy H/O dilation and curettage History of bunionectomy Social History Social History Household Members: Family Housing: House Are you a primary healthcare facility administrator to a significant other at home: No Do you presently have visiting nurse or other home services: No Patient Tobacco Use Status: Never used Tobacco Have you been hit, kicked, punched, or otherwise hurt by someone within the past year? If so, by whom?: No Are you DNR?: No Advance Directives: No Advance Directives Information Provided: Yes service: No Meds Allergies Allergy/AdvReac Type Severity Reaction Status Date / Time No Known Allergies Allergy Verified 03/19/25 10:06 Home Medications ?Medication ?Instructions ?Recorded ?Confirmed ?Last Taken ?Type amitriptyline 10 mg tablet 10 mg PO BEDTIME 09/26/24 1 05/20/24 09/25/24 History escitalopram oxalate 10 mg tablet 10 mg PO DAILY 09/2603/19/25 09/25/24 History fluticasone propionate 50 2 spray intranasal QAM 09/2603/19/25 09/25/24 History mcg/actuation nasal spray,suspension diphenhydramine HCl 25 mg tablet 25 mg PO BEDTIME PRN Insomnia 01/09/25 03/19/25 Unknown History (Simply Sleep) Assessment and Plan Assessment Anesthesia Assessment: Chart Reviewed Documented by User: Lorena Martinez DO 03/19/25 11:14 PMF Past Medical History Medical History (Updated 03/19/25 @ 10:17 by Vicky Baird RN) Menopause Pneumonia Atypical pneumonia Sepsis Acute hypokalemia Anxiety and depression Perimenopausal Chronic headache Family History Family History Father Dementia Malignant neoplasm of brain Malignant neoplasm of lung Maternal Grandmother Malignant neoplasm of breast Family history of problems with anesthesia: No Surgical History Surgical History Hx of tonsillectomy H/O dilation and curettage History of bunionectomy History of Problems with Anesthesia: No Social History Social History Household Members: Family Housing: House Are you a primary healthcare facility administrator to a significant other at home: No Do you presently have visiting nurse or other home services: No Patient Tobacco Use Status: Never used Tobacco Have you been hit, kicked, punched, or otherwise hurt by someone within the past year? If so, by whom?: No Are you DNR?: No Advance Directives: No Advance Directives Information Provided: Yes service: No Meds Allergies Allergy/AdvReac Type Severity Reaction Status Date / Time No Known Allergies Allergy Verified 03/19/25 10:06 Home Medications ?Medication ?Instructions ?Recorded ?Confirmed ?Last Taken ?Type amitriptyline 10 mg tablet 10 mg PO BEDTIME 09/26/24 1 05/20/24 09/25/24 History escitalopram oxalate 10 mg tablet 10 mg PO DAILY 09/2603/19/25 09/25/24 History fluticasone propionate 50 2 spray intranasal QAM 09/2603/19/25 09/25/24 History mcg/actuation nasal spray,suspension diphenhydramine HCl 25 mg tablet 25 mg PO BEDTIME PRN Insomnia 01/09/25 03/19/25 Unknown History (Simply Sleep) Exam Exam Date and Time: 03/19/25 1113 Height,Weight and Vital Signs: Height 5 ft 2 in Weight 57.2 kg Vital Signs Temperature 98.1 F 03/19/25 10:15 Pulse Rate 102 H 03/19/25 10:15 Respiratory Rate 18 03/19/25 10:15 Blood Pressure 163/64 H 03/19/25 10:15 Pulse Oximetry 98 03/19/25 10:15 Oxygen Delivery Method Room Air 03/19/25 10:15 Temperature 98.1 F 03/19/25 10:15 Pulse Rate 102 H 03/19/25 10:15 Respiratory Rate 18 03/19/25 10:15 Blood Pressure 158/65 H 03/19/25 10:30 Pulse Oximetry 98 03/19/25 10:15 Oxygen Delivery Method Room Air 03/19/25 10:15 Airway Mallampati Class: II TM Dist: >3cm Neck ROM: Full Loose/Missing/Broken Teeth: No (patient denies any loose or broken teeth) Heart: S1S2 Lungs: CTAB Assessment and Plan Assessment Anesthesia Assessment: Anesthesia Plan Discussed and Chart Reviewed Final Anesthetic Review Family History of Problems with Anesthesia: No History of Problems with Anesthesia: No NPO: Yes ASA Class: II Final Preanesthetic Review: No Changes in Pt Med Stat, Meds/Allgs Chart Reviewed, Consent Obtained/Reviewed and Anes Risks/Benef Reviewed Patient Risk: Low Procedure Risk: Low Anesthetic Plan Anesthetic Plan: MAC: and Agree w/ Assess. and Plan Disposition: Standard PACU
--- NOTE | 2025-03-19 11:36 | HO.OPN-COLON ---
Colonoscopy Operative Note Operative Note Date of Service: 03/19/25 Narrative: Operative Information Procedure Description: Colonoscopy Indication: screening Anesthesia: MAC COLONOSCOPY Instrument: Olympus variable stiffness pediatric scope 190L Colonoscopy Monitoring: Vital signs and clinical assessment, continuous EKG monitoring, Pulse oximetry, Carbon Dioxide monitoring and blood pressure monitoring were done throughout the procedure. Colon withdrawal time was 11 minutes. Procedure: The patient was placed in the left lateral decubitis position and pre-procedure medications were administered. After a digital rectal examination of the ano-rectum, the video colonoscope was inserted into the rectum and advanced through the colon to the cecum/TI. The colonoscope was slowly withdrawn in a retrograde panoramic fashion and the colon mucosa was carefully examined including a retroflexed view of the rectum. Findings and interventions are described below. Procedure Difficulty: easy Findings: Terminal Ileum-normal Cecum:normal Right sided retroflexion- normal Ascending Colon: normal Transverse Colon -normal Descending Colon:normal Sigmoid Colon: normal Rectum: Retroflexion with small internal hemorrhoids seen, grade I Anorectum - normal Intervention: none Colon preparation: [place] Bowel Preparation Scale Right colon; 2 Transverse colon: 2 Left colon; 2 (0 = Unprepared colon segment with mucosa not seen due to solid stool that cannot be cleared. 1 = Portion of mucosa of the colon segment seen, but other areas of the colon segment not well seen due to staining, residual stool and/or opaque liquid. 2 = Minor amount of residual staining, small fragments of stool and/or opaque liquid, but mucosa of colon segment seen well. 3 = Entire mucosa of colon segment seen well with no residual staining, small fragments of stool or opaque liquid) Impression and Post Procedure Diagnosis: internal hemorrhoids Plan: High fiber diet leaflet Avoid straining at stool, epsom salts and sitz bath, anusol supps or cream Repeat Colonoscopy in 10 years or earlier if clinically indicated Above findings were reviewed with the patient and relevant handouts were provided if indicated.
[2025-03-19 11:39] VITALS: BP 106/51; PULSE 85; RESP 14; TEMP 36.4; O2SAT 97
[2025-03-19 11:54] VITALS: BP 129/77; PULSE 87; RESP 16; TEMP 36.3; O2SAT 100
== END 2025-03-19 12:34 | disposition home or self-care (01) ==
PROVIDERS: PCP Student in an Organized Health Care Education/Training Program; Visit Provider Internal Medicine Gastroenterology
PROC: 0DJD8ZZ Inspection of Lower Intestinal Tract, Via Natural or Artificial Opening Endoscopic (ICD-10-PCS; CPT 45378; principal; 2025-03-19 11:20)
DX: Z12.11 Encounter for screening for malignant neoplasm of colon (principal); K64.0 First degree hemorrhoids
CPT/HCPCS: 45378; J2003; J2704

== ENCOUNTER → 2025-03-19 08:49 | Outpatient (BNV) | payer OTHER, SELFPAY | PROVIDERS: PCP Student in an Organized Health Care Education/Training Program; Visit Provider Internal Medicine Gastroenterology | DX: Z12.11 Encounter for screening for malignant neoplasm of colon (principal); K64.0 First degree hemorrhoids | CPT/HCPCS: 45378 ==